=== PATIENT | female | born 1955 | race Caucasian/White ===

== ENCOUNTER 2018-11-20 12:30 | Inpatient (IN) | payer BC ==
[2018-12-18] MEDS ORDERED: Famotidine IV* 10 MG/ML 2 ML (20 mg) IV ONE (06:00)
[2018-12-18] MEDS ORDERED: Dexamethasone IV* 4 MG/ML 1 ML (4 MG) IV SLOW PU ONE (06:00)
[2018-12-18] MEDS ORDERED: Lactated Ringers 1000 ML Bag* 1,000 ML IV SCH ×2 (06:00→13:00)
[2018-12-18] MEDS ORDERED: fentaNYL* 50 MCG/ML 2 ML VIAL (100 MCG VIAL) IV PRN (07:23)
[2018-12-18] MEDS ORDERED: oxyCODONE/Acetamin 5/325 MG* TAB PO PRN ×2 (07:23→12:26)
[2018-12-18] MEDS ORDERED: Morphine 4 MG/ML VIAL (1 ml) 4 MG/ML VIAL IV PRN (07:23)
[2018-12-18] MEDS ORDERED: HYDROcodone/ACETAMIN 5-325 MG* 1 TAB PO PRN (07:23)
[2018-12-18] MEDS ORDERED: Naloxone* 0.4 MG/ML 1 ML VIAL IV PRN (07:23)
[2018-12-18] MEDS ORDERED: PROCHLORPERAZINE INJ 5 MG/ML 2 ML VIAL IV PRN (07:23)
--- OUTSIDE RECORDS SUMMARY | 2018-12-18 08:17 | XMS REPORT | Continuity of Care Document ---
:1955 External Reference #:[id number] Author Name Jorge Lauren Care Team Providers Name Role Phone Vadim Olguin MD Primary Care Physician Unavailable Payers Date Identification Numbers Payment Provider Subscriber Effective: 2016 Policy Number: [id number] [employer] Emeka Jain PayID: [id number] [address] [address] JEREMIAS Prasad [address] Expires: 2012 Policy Number: [id number] [employer] Ayah Jain PayID: [id number] [address] [address] JEREMIAS Prasad [address] Expires: 2013 Policy Number: [id number] [employer] Ayah Jain PayID: [id number] [address] [place] [address] Expires: 2013 Policy Number: [id number] [employer] Ayah Jain PayID: [id number] [address] [address] JEREMIAS Prasad [address] Expires: 2016 Policy Number: [id number] [employer] Emeka Jain PayID: [id number] [address] [address] [place] [address] Problems Active Problems Provider Date Skin sensation disturbance Neris Worthington M.D. Onset: 11/21/2014 Polyneuropathy Neris Worthington M.D. Onset: 11/21/2014 Carpal tunnel syndrome Neris Worthington M.D. Onset: 05/15/2015 Pain in lower limb Neris Worthington M.D. 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 ETOH Use Never used alcohol Tobacco Use Start: Unknown Light tobacco smoker (10 or fewer cigarettes/day) Smoking Status Reviewed: 11/29/18 Light tobacco smoker (10 or fewer cigarettes/day) Exercise Type/Frequency Does not exercise Allergies, Adverse Reactions, Alerts Active Allergies Reaction Severity Comments Date NSAIDs Severe internal bleeding Severe 12/19/2013 Aspartame 05/15/2015 Tape 05/15/2015 Adhesives 05/15/2015 Latex 11/13/2015 Bactrim 09/20/2018 Inactive Allergies NKDA 12/19/2013 Medications Active Medications SIG Qnty Indications Ordering Date Provider Doxycycline Monohydrate take one 42caps E11.621 Vadim Singh, 10/04/2018 100mg capsule twice M.D. Capsules a day. Lasix 1 by mouth Unknown 40mg Tablets every day prn Potassium Chloride Debbie ER 1 by mouth Unknown 20Meq every day Tablets ER Vitamin D 2 by mouth Unknown 2000Unit Tablets every day Nortriptyline HCL 1 capsule by [place], 10mg Capsules mouth daily MD Mac Citalopram Hydrobromide Take One Unknown 20mg Tablet By Tablets Mouth Every Day Oxycontin 1 tab by mouth [place], 20mg Tab ER 12H every 8 hrs MD Mca Abuse-Det Atenolol 1 by mouth 90tabs Unknown 25mg Tablets every day Oxycodone HCL 1 by mouth Unknown 10mg Tablets four times a day as needed Arimidex 1 by mouth Unknown 1mg Tablets every day Symbicort 1 puff twice a Unknown 80-4.5mcg/Act Aerosol day Ultram 2 tabs every 6 50tabs Unknown 50mg Tablets hours as needed pain Ventolin HFA 2 puffs by 1units Unknown 108(90Base) mcg/Act mouth four Aerosol times a day as needed Protonix 1 by mouth 90tabs Unknown 40mg Tablets DR every day [place] Thyroid 1 by mouth 45tabs Unknown 90mg Tablets every day Singulair 1 by mouth 30tabs Unknown 10mg Tablets every day Hydrochlorothiazide 1 by mouth 30tabs Unknown 50mg Tablets every day History Medications Dicloxacillin Sodium one by mouth 30caps E11.621 Vadim Singh, 2018 - twice a day M.D. 10/04/2018 250mg Capsules Bactrim DS 1 by mouth twice 14tabs L97.529 Vadim Singh, 08/09/2018 - 800-160mg a day M.D. 09/12/2018 Tablets Keflex 1 by mouth three 42caps L97.529 Vadim Singh, 07/06/2018 - 500mg Capsules times a day M.D. 07/25/2018 Trileptal 1- 3 tabs by 180tabs G60.3 Neris Morales 12/02/2015 - 150mg Tablets mouth 2x every Dixon Worthington.DNinfa 12/27/2016 day as directed Savella 1 by mouth twice Neris Morales 11/21/2014 - 50mg Tablets a day Elin M.DNinfa 05/10/2016 Trileptal 1- 3 tabs by 180tabs 782.0 Neris Morales 11/21/2014 - 150mg Tablets mouth 2x every Stacksharda M.DNinfa 05/14/2015 day as directed Magnolia 1 by mouth twice 60tabs 782.0 Tammi Pennington, 03/15/2014 - 5-325mg Tablets a day REGRADER 05/14/2015 Lyrica 2-4 caps by 120caps 356.9 Neris Morales 12/19/2013 - 50mg Capsules mouth every Stacksharda, M.D. 11/20/2014 night as directed Pamelor 1-3 caps by 90caps Neris Morales 10/15/2013 - 10mg Capsules mouth every Stacksharda M.DNinfa 12/07/2013 night as directed Lyrica 1 cap po qid 10caps Unknown - 50mg Capsules 12/07/2013 Atenolol 1 by mouth every 30tabs Unknown - 25mg Tablets day 09/18/2018 Maxair Autohaler 2 puffs by mouth 1units Unknown - every 4-6 hrs. 11/20/2014 200mcg/Inh Aerosol as needed Percocet 2 by mouth qid Unknown - 5-325mg 10/27/2015 Tablets Alendronate Sodium Take 1 Tablet By Unknown - 70mg Mouth Once A 07/25/2018 Tablets Week Medications Administered in Office Medication SIG Qnty Indications Ordering Provider Date Injection Hyaluronan Or Derivative, Sheree Rolon MD 06/13/2018 Euflexxa Per Dose Injection Injection Hyaluronan Or Derivative, Sheere Rolon MD 06/13/2018 Euflexxa Per Dose Injection Injection Hyaluronan Or Derivative, Sheree Rolon MD 06/01/2018 Euflexxa Per Dose Injection Injection Hyaluronan Or Derivative, Sheree Rolon MD 06/01/2018 Euflexxa Per Dose Injection Triamcinolone (Kenalog) Sheree Rolon MD 06/01/2018 Injection Injection Hyaluronan Or Derivative, Sheree Rolon MD 05/25/2018 Euflexxa Per Dose Injection Injection Hyaluronan Or Derivative, Sheree Rolon MD 05/25/2018 Euflexxa Per Dose Injection Triamcinolone (Kenalog) Sheree Rolon MD 04/18/2018 Injection Vital Signs Date Vital Result Comment 11/29/2018 2:52pm Height 66 inches 5'6" Weight 170.00 lb Heart Rate 66 /min BP Systolic Sitting 142 mmHg BP Diastolic Sitting 74 mmHg Respiratory Rate 16 /min Pain Level 7 O2 % BldC Oximetry 97 % BMI (Body Mass Index) 27.4 kg/m2 11/08/2018 4:20pm Height 66 inches 5'6" Weight 172.00 lb Heart Rate 66 /min BP Systolic Sitting 122 mmHg BP Diastolic Sitting 60 mmHg Respiratory Rate 18 /min Pain Level 8 BMI (Body Mass Index) 27.8 kg/m2 10/18/2018 2:19pm Height 66 inches 5'6" Weight 172.00 lb Heart Rate 66 /min BP Systolic Sitting 118 mmHg BP Diastolic Sitting 64 mmHg Respiratory Rate 18 /min Pain Level 7 BMI (Body Mass Index) 27.8 kg/m2 10/04/2018 2:04pm Height 66 inches 5'6" Weight 170.00 lb Heart Rate 66 /min BP Systolic Sitting 126 mmHg BP Diastolic Sitting 80 mmHg Respiratory Rate 12 /min Pain Level 7 BMI (Body Mass Index) 27.4 kg/m2 09/20/2018 2:26pm Height 66 inches 5'6" Weight 170.00 lb BP Systolic Sitting 128 mmHg BP Diastolic Sitting 76 mmHg Respiratory Rate 16 /min Pain Level 8 BMI (Body Mass Index) 27.4 kg/m2 08/30/2018 3:23pm Height 66 inches 5'6" Weight 185.00 lb BP Systolic Sitting 126 mmHg BP Diastolic Sitting 70 mmHg Respiratory Rate 16 /min Pain Level 7 BMI (Body Mass Index) 29.9 kg/m2 08/16/2018 2:49pm Height 66 inches Weight 185.00 lb BP Systolic Sitting 128 mmHg BP Diastolic Sitting 64 mmHg Respiratory Rate 17 /min Pain Level 7 BMI (Body Mass Index) 29.9 kg/m2 08/09/2018 3:09pm Heart Rate 92 /min BP Systolic Sitting 138 mmHg BP Diastolic Sitting 86 mmHg Respiratory Rate 16 /min Pain Level 8 O2 % BldC Oximetry 97 % 07/26/2018 2:52pm Heart Rate 69 /min BP Systolic Sitting 114 mmHg BP Diastolic Sitting 58 mmHg Respiratory Rate 16 /min Pain Level 6 O2 % BldC Oximetry 97 % 07/06/2018 11:41am Height 66 inches 5'6" Weight 185.00 lb Heart Rate 88 /min BP Systolic 154 mmHg BP Diastolic 80 mmHg Body Temperature 98.5 F Pain Level 8 BMI (Body Mass Index) 29.9 kg/m2 06/29/2018 3:37pm Height 66 inches 5'6" Weight 160.00 lb BP Systolic 144 mmHg BP Diastolic 86 mmHg Pain Level 8 BMI (Body Mass Index) 25.8 kg/m2 06/13/2018 2:10pm Height 66 inches 5'6" Weight 160.00 lb BP Systolic 138 mmHg BP Diastolic 80 mmHg Respiratory Rate 20 /min Pain Level 3 BMI (Body Mass Index) 25.8 kg/m2 06/01/2018 1:35pm Height 66 inches 5'6" Weight 160.00 lb BP Systolic 124 mmHg BP Diastolic 74 mmHg BMI (Body Mass Index) 25.8 kg/m2 05/25/2018 1:08pm Height 66 inches 5'6" Weight 160.00 lb BP Systolic 140 mmHg BP Diastolic 62 mmHg Respiratory Rate 20 /min Pain Level 7 BMI (Body Mass Index) 25.8 kg/m2 04/18/2018 11:19am Height 66 inches 5'6" Heart Rate 67 /min BP Systolic 120 mmHg BP Diastolic 70 mmHg Respiratory Rate 18 /min Body Temperature 98.0 F Pain Level 8 04/06/2018 8:47am Height 66 inches 5'6" BP Systolic 136 mmHg BP Diastolic 86 mmHg Respiratory Rate 18 /min Body Temperature 98.1 F Pain Level 7 11/03/2017 10:30am Height 66 inches 5'6" Heart Rate 75 /min BP Systolic 110 mmHg BP Diastolic 60 mmHg Respiratory Rate 16 /min Body Temperature 97.8 F Pain Level 5 01/20/2017 2:56pm Height 66 inches 5'6" Weight 160.00 lb Heart Rate 71 /min BP Systolic 131 mmHg BP Diastolic 72 mmHg Body Temperature 97.5 F Pain Level 5 BMI (Body Mass Index) 25.8 kg/m2 01/06/2017 2:56pm Heart Rate 68 /min BP Systolic Sitting 115 mmHg BP Diastolic Sitting 80 mmHg Body Temperature 98.1 F Pain Level 6 12/28/2016 3:16pm Height 66 inches 5'6" Weight 167.00 lb Heart Rate 62 /min BP Systolic Sitting 140 mmHg BP Diastolic Sitting 85 mmHg Body Temperature 97.7 F Pain Level 5 BMI (Body Mass Index) 27.0 kg/m2 09/29/2016 3:33pm Height 64 inches 5'4" Weight 174.00 lb Heart Rate 96 /min BP Systolic Sitting 158 mmHg BP Diastolic Sitting 98 mmHg Respiratory Rate 18 /min Body Temperature 98.5 F Pain Level 4 BMI (Body Mass Index) 29.9 kg/m2 07/02/2016 2:20pm Height 66 inches 5'6" Weight 160.00 lb Heart Rate 77 /min BP Systolic 136 mmHg BP Diastolic 78 mmHg Pain Level 8 BMI (Body Mass Index) 25.8 kg/m2 05/11/2016 8:54am Height 66 inches 5'6" Weight 170.00 lb Heart Rate 80 /min BP Systolic Sitting 124 mmHg BP Diastolic Sitting 62 mmHg Respiratory Rate 18 /min O2 % BldC Oximetry 97 % BMI (Body Mass Index) 27.4 kg/m2 03/18/2016 2:37pm Height 66 inches 5'6" Weight 160.00 lb Respiratory Rate 16 /min Pain Level 8 BMI (Body Mass Index) 25.8 kg/m2 03/09/2016 11:49am Height 66 inches 5'6" Weight 160.00 lb Pain Level 7 BMI (Body Mass Index) 25.8 kg/m2 12/02/2015 9:32am Height 66 inches 5'6" Weight 160.00 lb Heart Rate 76 /min BP Systolic Sitting 122 mmHg BP Diastolic Sitting 76 mmHg Respiratory Rate 14 /min BMI (Body Mass Index) 25.8 kg/m2 11/18/2015 2:33pm Height 66 inches 5'6" Weight 163.00 lb BMI (Body Mass Index) 26.3 kg/m2 11/13/2015 2:32pm Height 66 inches 5'6" Weight 163.00 lb Heart Rate 82 /min BP Systolic 134 mmHg BP Diastolic 84 mmHg BMI (Body Mass Index) 26.3 kg/m2 10/28/2015 2:01pm Height 66 inches 5'6" Weight 163.00 lb Pain Level 6 BMI (Body Mass Index) 26.3 kg/m2 10/21/2015 11:16am Height 66 inches 5'6" Weight 163.00 lb Heart Rate 60 /min Respiratory Rate 16 /min Pain Level 8 BMI (Body Mass Index) 26.3 kg/m2 06/20/2015 3:19pm Height 66 inches 5'6" Weight 163.00 lb Heart Rate 79 /min BP Systolic 132 mmHg BP Diastolic 69 mmHg BMI (Body Mass Index) 26.3 kg/m2 05/15/2015 10:33am Height 66 inches 5'6" Weight 155.00 lb Heart Rate 60 /min BP Systolic Sitting 136 mmHg BP Diastolic Sitting 84 mmHg Respiratory Rate 16 /min BMI (Body Mass Index) 25.0 kg/m2 11/21/2014 9:40am Height 66 inches 5'6" Weight 150.00 lb Heart Rate 76 /min BP Systolic Sitting 138 mmHg BP Diastolic Sitting 80 mmHg Respiratory Rate 16 /min BMI (Body Mass Index) 24.2 kg/m2 12/19/2013 2:24pm Height 66 inches 5'6" Weight 170.00 lb Heart Rate 84 /min BP Systolic Sitting 140 mmHg BP Diastolic Sitting 72 mmHg Respiratory Rate 16 /min BMI (Body Mass Index) 27.4 kg/m2 Results Test Date Facility Test Result H/L Range Note Basic Metabolic 01/03/2017 [facility] Sodium 133 mmol/L N 133- [address] [place] [address] [phone] Potassium 3.9 mmol/L N 3.5-5.0 Chloride 94 mmol/L Low 101-111 Co2 Carbon Dioxide 32 mmol/L N 22-32 Anion Gap 7 mmol/L N 2-11 Glucose 108 mg/dL High 70-100 Blood Urea Nitrogen 5 mg/dL Low 6-24 Creatinine 0.68 mg/dL N 0.51-0.95 BUN/Creatinine Ratio 7.4 Low 8-20 Calcium 9.4 mg/dL N 8.6-10.3 Egfr Non- 88.0 N >60 Egfr 113.1 N >60 1 Laboratory test finding 12/05/2015 [facility] Anti Ssa/Ro <0.2 U N [address] [place] [address] [phone] Anti SSB LA <0.2 U N 3 Cryoglobulin Negative %ppt N Negative 4 Rheumatoid Factor <15 IU/mL N <15 5 Basic Metabolic Panel 12/05/2015 [facility] Sodium 134 mmol/L N 133-[address] [place] [address] [phone] Potassium 3.6 mmol/L N 3.5-5.0 Chloride 97 mmol/L Low 101-111 Co2 Carbon Dioxide 29 mmol/L N 22-32 Anion Gap 8 mmol/L N 2-11 Glucose 79 mg/dL N 70-100 Blood Urea Nitrogen 3 mg/dL Low 6-24 Creatinine 0.64 mg/dL N 0.51-0.95 BUN/Creatinine Ratio 4.7 Low 8-20 Calcium 9.3 mg/dL N 8.6-10.3 Egfr Non- 94.7 N >60 Egfr 121.7 N >60 6 Laboratory test 11/25/2015 [facility] Cytology SEE RESULT [address] [place] [address] [phone] Laboratory test 01/20/2015 [facility] Vitamin D 34.5 ng/mL N 30-[address] Total 25(Oh) [place] [address] [phone] CBC No Diff 01/20/2015 [facility] White Blood 7.8 10^3/uL N 4.8-[address] Count .8 [place] [address] [phone] Red Blood Count 4.34 10^6/uL N 4.0-5.4 Hemoglobin 13.0 g/dL N 12.0-16.0 Hematocrit 38 % N 35-47 Mean Corpuscular Volume 87 fL N 80-97 Mean Corpuscular Hemoglobin 30 pg N 27-31 Mean Corpuscular HGB Conc 34 g/dL N 31-36 Red Cell Distribution Width 13 % N 10.5-15 Platelet Count 411 10^3/uL N 150-450 Mean Platelet Volume 8 um3 N 7.4-10.4 Comp Metabolic Panel 01/20/2015 [facility] Sodium 133 mmol/L N 133-[address] [place] [address] [phone] Potassium 4.0 mmol/L N 3.5-5.0 Chloride 96 mmol/L Low 101-111 Co2 Carbon Dioxide 31 mmol/L N 22-32 Anion Gap 6 mmol/L N 2-11 Glucose 106 mg/dL High 70-100 Blood Urea Nitrogen 4 mg/dL Low 6-24 Creatinine 0.65 mg/dL N 0.51-0.95 BUN/Creatinine Ratio 6.2 Low 8-20 Calcium 9.6 mg/dL N 8.6-10.3 Total Protein 6.5 g/dL N 6.4-8.9 Albumin 4.1 g/dL N 3.2-5.2 Globulin 2.4 g/dL N 2-4 Albumin/Globulin Ratio 1.7 N 1-3 Total Bilirubin 0.30 mg/dL N 0.2-1.0 Alkaline Phosphatase 78 U/L N 34-104 Alt 10 U/L N 7-52 Ast 17 U/L N 13-39 Egfr Non- 93.3 N >60 Egfr 120.0 N >60 8 Laboratory test 06/06/2014 [facility] Lupe (Anti-Nuclear Negative N Negative finding [address] AB) [place] [address] [phone] Erythrocyte Sed Rate 36 mm/Hr High 0-30 C Reactive Protein 21.67 mg/L High < 5.00 9 Rheumatoid Factor <15 IU/mL N <15 10 CBC No Diff 06/06/2014 [facility] White Blood 5.9 10^3/uL N 4.8-10.[address] [place] [address] [phone] Red Blood Count 4.23 10^6/uL N 4.0-5.4 Hemoglobin 11.8 g/dL Low 12.0-16.0 Hematocrit 35 % N 35-47 Mean Corpuscular Volume 83 fL N 80-97 Mean Corpuscular Hemoglobin 28 pg N 27-31 Mean Corpuscular HGB Conc 34 g/dL N 31-36 Red Cell Distribution Width 14 % N 10.5-15 Platelet Count 431 10^3/uL N 150-450 Mean Platelet Volume 8 um3 N 7.4-10.4 Comp Metabolic Panel 06/06/2014 [facility] Sodium 133 mmol/L N 133-[address] [place] [address] [phone] Potassium 2.9 mmol/L Low 3.5-5.0 Chloride 95 mmol/L Low 101-111 Co2 Carbon Dioxide 32 mmol/L N 22-32 Anion Gap 6 mmol/L N 2-11 Glucose 88 mg/dL N 70-100 Blood Urea Nitrogen 5 mg/dL Low 6-24 Creatinine 0.61 mg/dL N 0.51-0.95 BUN/Creatinine Ratio 8.2 N 8-20 Calcium 9.6 mg/dL N 8.6-10.3 Total Protein 7.1 g/dL N 6.4-8.9 Albumin 4.0 g/dL N 3.2-5.2 Globulin 3.1 g/dL N 2-4 Albumin/Globulin Ratio 1.3 N 1-3 Total Bilirubin 0.20 mg/dL N 0.2-1.0 Alkaline Phosphatase 70 U/L N 34-104 Alt 9 U/L N 7-52 Ast 14 U/L N 13-39 Egfr Non- 100.4 N >60 Egfr 129.1 N >60 11 Lipid Profile 06/06/2014 [facility] Triglycerides 134 mg/dL N 12 (Trig/Chol/HDL) [address] [place] [address] [phone] Cholesterol 117 mg/dL N 13 HDL Cholesterol 42.6 mg/dL N 14 LDL Cholesterol 48 mg/dL N 15 Laboratory test 06/06/2014 [facility] TSH (Thyroid 0.10 Low 0.34-5.[address] Stimulating IU/[place] [address] Horm) [phone] Laboratory test 12/25/2013 [facility] Anti Ssa/Ro <0.2 U N [address] [place] [address] [phone] SS-B/La Antibody <0.2 U N 17 Hepatitis C Antibody Nonreactive N Nonreactive Cryoglobulin Negative %ppt N Negative 18 Protein 10/18/2013 [facility] Total 6.7 g/dL N 6.3 - Electrophoresis [address] [facility] Protein(Pep) 7.9 [place] [address] [phone] Albumin 3.3 g/dL Abnormal 3.4-4.7 Alpha-1 Globulin 0.2 g/dL N 0.1-0.3 Alpha-2 Globulin 0.9 g/dL N 0.6-1.0 Beta Globulin 1.0 g/dL N 0.7-1.2 Gamma Globulin 1.3 g/dL N 0.6-1.6 Albumin/Globulin Ratio 0.96 N Impression See Comment N 19 Laboratory test 10/18/2013 [facility] Vitamin B12 1082 pg/mL High 180-914 [address] [place] [address] [phone] Free T4 0.88 ng/mL N 0.61-1.12 TSH (Thyroid Stimulating Horm) 0.11 IU/mL Low 0.34-5.60 Lupe (Anti-Nuclear AB) Screen Negative N Negative 1 Because ethnic data is not always readily available, this report includes an eGFR for both -Americans and non- Americans. The National Kidney Disease Education Program (NKDEP) does not endorse the use of the MDRD equation for patients that are not between the ages of 18 and 70, are , have extremes of body size, muscle mass, or nutritional status, or are non- or non-. According to the National Kidney Foundation, irrespective of diagnosis, the stage of the disease is based on the level of kidney function: Stage Description GFR(mL/min/1.73 m(2)) 1 Kidney damage with normal or decreased GFR 90 2 Kidney damage with mild decrease in GFR 60-89 3 Moderate decrease in GFR 30-59 4 Severe decrease in GFR 15-29 5 Kidney failure <15 (or dialysis) 2 REFERENCE VALUE <1.0 (Negative) Test Performed by: [place] [address] Zanjero: Kunal Aguilar II, M.D., Ph.D. 3 REFERENCE VALUE <1.0 (Negative) Test Performed by: [place] [address] Zanjero: Kunal Aguilar II, M.D., Ph.D. 4 This test is negative at 24 hours. All samples are held and reviewed again at 7 days. If delayed precipitation occurs after 7 days, Immunofixation will be performed and an additional report will follow. Test Performed by: [place] [address] Zanjero: Kunal Aguilar II, M.D., Ph.D. 5 Test Performed by: [place] [address] Zanjero: Kunal Aguilar II, M.D., Ph.D. 6 Because ethnic data is not always readily available, this report includes an eGFR for both -Americans and non- Americans. The National Kidney Disease Education Program (NKDEP) does not endorse the use of the MDRD equation for patients that are not between the ages of 18 and 70, are , have extremes of body size, muscle mass, or nutritional status, or are non- or non-. According to the National Kidney Foundation, irrespective of diagnosis, the stage of the disease is based on the level of kidney function: Stage Description GFR(mL/min/1.73 m(2)) 1 Kidney damage with normal or decreased GFR 90 2 Kidney damage with mild decrease in GFR 60-89 3 Moderate decrease in GFR 30-59 4 Severe decrease in GFR 15-29 5 Kidney failure <15 (or dialysis) 7 SEE RESULT BELOW Name: AYAH JAIN Iris : [address]: Nuha Rothman MD Acct: [id number] Unit: [id number] AGE: 60 Location: Re11/25/15 SEX: F Status: REG REF SPEC: [id number] FRANCISCO: 11/25/15-[address] [facility] [address]: Kong Ward MD REQ: [id number] RECD: 11/25/15-1627 STATUS: TARA DAUGHERTY DR: Mac Olguin MD _ ORDERED: FN ASP DEEP, KERATIN STAIN, LEVEL IV, FNA IMMEDIATE S, ERAS-ADD, CD68-AD CK7-ADD, XO57-UWI, CALRET-ADD, TTF1-ADD, WT-1-ADD, PRAS-ADD FINAL DIAGNOSIS Right rib, CT guided fine needle aspiration: -- Blood, mesothelial cells, and macrophages. No evidence of malignancy. COMMENT: A cell block was prepared in the evaluation of this specimen. Smears and cell block show similar cytomorphologic features. Immunohistochemical stains, with appropriately reacting controls, were performed on sections cut from the cell block and are negative for ER, UT, CK20, and WT-1 and positive for pankeratin, calretinin, CD68, TTF-1, and CK7, supporting the diagnosis. Dr. Parrish reviewed this case in intradepartmental consultation and agrees with the diagnosis. FNAD. RIB - CT GUIDED FINE NEEDLE ASPIRATION RIGHT RIB BIOPSY CLINICAL HISTORY Right rib bone biopsy. Right breast invasive ductal adenocarcinoma 03/22. CONTINUED ON NEXT PAGE * ML=Testing performed at Main Lab DEPARTMENT OF PATHOLOGY, [address] [place] [address] Zia Parrish M.D. Director [facility] # [id number] RUN DATE: 11/28/15 [facility] LAB LIVE PAGE 2 Patient: AYAH JAIN [id number] (Continued) IMMEDIATE INTERPRETATION (Continued) IMMEDIATE INTERPRETATION Pass 1-[address] Guided, fine needle aspiration x 5 passes, 7 alcohol fixed slides and needle rinse in formalin for cell block. Signed (signature on file) Ana Maria Rocha MD [id number] END OF REPORT * ML=Testing performed at Main Lab DEPARTMENT OF PATHOLOGY, [address] [place] [address] Zia Parrish M.D. Director [facility] # [id number] 8 Because ethnic data is not always readily available, this report includes an eGFR for both -Americans and non- Americans. The National Kidney Disease Education Program (NKDEP) does not endorse the use of the MDRD equation for patients that are not between the ages of 18 and 70, are , have extremes of body size, muscle mass, or nutritional status, or are non- or non-. According to the National Kidney Foundation, irrespective of diagnosis, the stage of the disease is based on the level of kidney function: Stage Description GFR(mL/min/1.73 m(2)) 1 Kidney damage with normal or decreased GFR 90 2 Kidney damage with mild decrease in GFR 60-89 3 Moderate decrease in GFR 30-59 4 Severe decrease in GFR 15-29 5 Kidney failure <15 (or dialysis) 9 Acute inflammation: >10.00 10 Test Performed by: [place] [address] Zanjero: Geremias Adames M.D. 11 Because ethnic data is not always readily available, this report includes an eGFR for both -Americans and non- Americans. The National Kidney Disease Education Program (NKDEP) does not endorse the use of the MDRD equation for patients that are not between the ages of 18 and 70, are , have extremes of body size, muscle mass, or nutritional status, or are non- or non-. According to the National Kidney Foundation, irrespective of diagnosis, the stage of the disease is based on the level of kidney function: Stage Description GFR(mL/min/1.73 m(2)) 1 Kidney damage with normal or decreased GFR 90 2 Kidney damage with mild decrease in GFR 60-89 3 Moderate decrease in GFR 30-59 4 Severe decrease in GFR 15-29 5 Kidney failure <15 (or dialysis) 12 Desirable <150 Borderline high 150-199 High 200-499 Very High >500 13 Desirable <200 Borderline high 200-239 High >239 14 Low <40 Desirable: 40-60 High: >60 15 Desirable <100 Near Optimal 100-129 Borderline high 130-159 High 160-189 Very High >189 16 -- REFERENCE VALUE -- <1.0 (Negative) Test Performed by: [place] [address] Zanjero: Henry Everett III, M.D. 17 -- REFERENCE VALUE -- <1.0 (Negative) Test Performed by: [place] [address] Zanjero: Henry Everett III, M.D. 18 This test is negative at 24 hours. All samples are held and reviewed again at 7 days. If delayed precipitation occurs after 7 days, Immunofixation will be performed and an additional report will follow. Test Performed by: [place] [address] Zanjero: Henry Everett III, M.D. 19 RESULT: No apparent monoclonal protein on serum electrophoresis. Test Performed by: [address] [address] Zanjero: Henry Everett III, M.D. 20 Normal Range 180 to 914 Indeterminate Range 145 to 180 Deficient Range <145 Procedures Date Code Description Status 11/22/2018 [id number] Diabetic Foot Exam Completed 08/16/2018 84343 Rad Exam; Foot Comp Completed 06/13/2018 Inj/Aspir Major JT Or Bursa W/ US Completed 06/01/2018 Inj/Aspir Major JT Or Bursa W/ US Completed 06/01/2018 Inject/Drain Joint/Bursa Major W/O US Completed 05/25/2018 Inj/Aspir Major JT Or Bursa W/ US Completed 04/18/2018 Inject/Drain Joint/Bursa Major W/O US Completed 12/19/2013 89863 Nerve Conduction 05-06 Studies Completed 08/05/2010 [id number] EKG, Interpretation Only Completed 08/05/2010 [id number] Insert Non-Tunneled Venous Catether Completed Encounters Type Date Location Provider Dx Diagnosis Office Visit 11/29/2018 Orthopedic Vadim Singh, E11.621 Type 2 diabetes 2:45p Services Of Sandee CUEVAS M.DNinfa mellitus with [place] foot ulcer Office Visit 10/18/2018 Orthopedic Vadim Singh, E11.621 Type 2 diabetes 3:00p Services Of Sandee Metcalf.[place] mellitus with [place] foot ulcer L97.429 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 mellitus with AT [place] foot ulcer Office Visit 09/20/2018 2:45p Orthopedic Vadim E11.621 Type 2 diabetes Services Of Sandee Singh M.D. mellitus with AT [place] foot ulcer Office Visit 08/30/2018 3:15p Orthopedic Vadim E11.621 Type 2 diabetes Services Of Sandee Singh M.D. 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 mellitus with AT [place] foot ulcer M86.9 Osteomyelitis, unspecified L97.529 Non-pressure chronic ulcer oth prt left foot w unsp severity Office Visit 08/09/2018 3:15p Orthopedic Vadim L97.529 Non-pressure Services Of Sandee Singh M.D. chronic ulcer oth AT [place] prt left foot w unsp severity Office Visit 07/26/2018 2:45p Orthopedic Vadim L97.529 Non-pressure Services Of Sandee Singh M.D. chronic ulcer oth AT [place] prt left foot w unsp severity Office Visit 07/06/2018 11:00a Orthopedic Vadim L97.529 Non-pressure Services Of Anthony Singh chronic ulcer oth [facility] prt left foot w unsp severity Office Visit 06/29/2018 3:15p Orthopedic Sheree Rolon M75.121 Complete Services Of MD rotatr-cuff [facility] tear/ruptr of r shoulder, not trauma M75.122 Complete rotatr-cuff tear/ruptr of left shoulder, not trauma Office Visit 06/13/2018 2:00p Orthopedic Sheree Rolon, M75.121 Complete Services Of rotatr-cuff [facility] tear/ruptr of r shoulder, not trauma M17.0 Bilateral primary osteoarthritis of knee Office Visit 04/18/2018 10:45a Orthopedic Sheree Rolon, M17.0 Bilateral primary Services Of osteoarthritis of [facility] knee M75.122 Complete rotatr-cuff tear/ruptr of left shoulder, not trauma Office Visit 04/06/2018 Orthopedic Sheree Rolon, M17.11 Unilateral primary 8:30a Services Of osteoarthritis, right [facility] knee M17.12 Unilateral primary osteoarthritis, left knee M75.122 Complete rotatr-cuff tear/ruptr of left shoulder, not trauma M17.0 Bilateral primary osteoarthritis of knee M25.512 Pain in left shoulder Office Visit 11/03/2017 Reuben Rolon, M17.11 Unilateral primary 10:30a Services Of osteoarthritis, [facility] right knee Office Visit 01/20/2017 Reuben Rolon, M75.122 Complete rotatr- cuff 2:45p Services Of tear/ruptr of left [facility] shoulder, not trauma Office Visit 01/06/2017 Reuben Rolon, M75.121 Complete rotatr- cuff 2:45p Services Of tear/ruptr of r [facility] shoulder, not trauma S46.012D Strain of musc/tend the rotator cuff of left shoulder, subs Office Visit 12/28/2016 2:30p Orthopedic Sheree Rolon M25.511 Pain in right Services Of shoulder [facility] R07.9 Chest pain, unspecified R07.89 Other chest pain Office Visit 09/29/2016 3:15p Orthopedic Jasmina M67.432 Ganglion, left Services Of Anthony Calix wrist [facility]. Office Visit 07/02/2016 2:15p Orthopedic Vadim Singh, M19.072 Primary Services Of Anthony osteoarthritis, [facility].M.[facility]. 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 left ankle and foot Office Visit 12/02/2015 9:30a Venus Morales R20.2 Paresthesia of Services Of garth Glasgow M.D. G60.3 Idiopathic progressive neuropathy G56.01 Carpal tunnel syndrome, right upper limb G56.02 Carpal tunnel syndrome, left upper limb Office Visit 11/18/2015 2:30p Orthopedic Sheree Rolon M75.121 Complete Services Of MD renteria C.M.ANinfa tear/ruptr of r shoulder, not trauma Office Visit 11/13/2015 2:20p Orthopedic Susan M25.531 Pain in right Services Of Tegan, wrist [facility]. RPA-C Office Visit 10/28/2015 2:00p Reuben Blanco9.072 Primary Services Of Anthony Singh osteoarthritis, [facility].M.A. 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 ankle and foot M19.071 Primary osteoarthritis, right ankle and foot Office Visit 05/15/2015 10:30a Venus Morales R20.2 Paresthesia of Services Of Manager Reimbursement Stackman, M.D. skin M79.604 Pain in right leg G60.3 Idiopathic progressive neuropathy G56.02 Carpal tunnel syndrome, left upper limb Office Visit 11/21/2014 9:45a [place] [facility] Neris Moraels 782.0 Skin Sensation Services Of Sandee Worthington M.D. Disturbance 356.4 Polyneuropathy Idiopathic Progress Office Visit 03/15/2014 10:45a [place] [facility] Neris Morales 782.0 Skin Sensation Services Of Sandee Worthington M.D. Disturbance 729.5 Pain In Limb Office Visit 10/15/2013 11:00a [place] Mor[place] 729.5 Pain In Neurologic Serv Of Sandee Worthington M.D. Limb 782.0 Skin Sensation Disturbance Plan of Treatment Future Appointment(s):12/06/2018 3:15 pm - Vadim Singh M.D. at [facility] AT [place]/29/2019 11:00 am - OSCAR Potter at [facility]12/04/2018 11:00 am - Vadim Singh M.D. at [facility]11/29/2018 - Vadim Singh M.D.E11.621 Type 2 diabetes mellitus with foot ulcerFollow up:1 week
--- OUTSIDE RECORDS SUMMARY | 2018-12-18 08:17 | XMS REPORT | Continuity of Care Document ---
:1955 External Reference #:[id number] Author Name OSCAR Acosta Address [address] [place] [address] Care Team Providers Name Role Phone Vadim Olguin MD Primary Care Physician Unavailable Payers Date Identification Numbers Payment Provider Subscriber Effective: 2016 Policy Number: [id number] [employer] Emeka Jain PayID: [id number] [address] [address] JEREMIAS Prasad [address] Expires: 2012 Policy Number: [id number] [employer] [place] Ayah Jain PayID: [id number] [address] [address] JEREMIAS Prasad [address] Expires: 2013 Policy Number: [id number] [employer] Ayah Jain PayID: [id number] [address] [place] [address] Expires: 2013 Policy Number: [id number] [employer] Ayah Jain PayID: [id number] [address] [address] JEREMIAS Prasad [address] Expires: 2016 Policy Number: [id number] [employer] Emeka Jain PayID: [id number] [address] [address] JEREMIAS Prasad [address] Problems Active Problems Provider Date Skin sensation [...] (10 or fewer cigarettes/day) Smoking Status Reviewed: 12/06/18 Light tobacco smoker (10 or fewer cigarettes/day) Exercise Type/Frequency Does not exercise Allergies, Adverse Reactions, Alerts Active Allergies Reaction Severity Comments Date NSAIDs Severe internal bleeding Severe 12/19/2013 Aspartame 05/15/2015 Tape 05/15/2015 Adhesives 05/15/2015 Latex 11/13/2015 Bactrim 09/20/2018 Environmental/Seasonal 12/06/2018 Inactive Allergies NKDA 12/19/2013 Medications Active Medications SIG Qnty Indications Ordering Date Provider Doxycycline Monohydrate take one 42caps E11.621 [facility], 10/04/2018 100mg capsule twice MD Capsules a day. Lasix 1 by mouth Unknown 40mg Tablets every day prn Potassium Chloride Debbie ER 1 by mouth Unknown 20Meq every day Tablets ER Vitamin D 2 by mouth Unknown 2000Unit Tablets every day Nortriptyline HCL 2 capsule by Zeeshanpjosh, 10mg Capsules mouth daily MD Mac Citalopram Hydrobromide Take One Unknown 20mg Tablet By Tablets Mouth Every Day Oxycontin 1 tab by mouth [place], 20mg Tab ER 12H every 8 hrs MD Mac Abuse-Det Atenolol 1 by mouth 90tabs Unknown 25mg Tablets every day Oxycodone HCL 1 by mouth Unknown 10mg Tablets eight times a day as needed Arimidex 1 [...] 90tabs Unknown 40mg Tablets DR every day [place] Thyroid 1 by mouth 45tabs Unknown 90mg [...] 12/02/2015 - 150mg Tablets mouth 2x every Stacksharda M.DNinfa 12/27/2016 day as directed Savella 1 by mouth twice Neris Morales 11/21/2014 - 50mg Tablets a day Anthony Worthington 05/10/2016 Trileptal 1- 3 tabs by 180tabs 782.0 Neris Morales 11/21/2014 - 150mg Tablets mouth 2x every Stackman M.D. 05/14/2015 day as directed [place] 1 by mouth twice 60tabs 782.0 Tammi Pennington, 03/15/2014 - 5-325mg Tablets a day DIRECT SUPPORT PROFESSIONAL CAREGIVER 05/14/2015 Lyrica 2-4 caps by 120caps 356.9 Neris Morales 12/19/2013 - 50mg Capsules mouth every Stackman M.D. 11/20/2014 night as directed [place] 1-3 caps by 90caps Neris Morales 10/15/2013 - 10mg Capsules mouth every Anthony Worthington 12/07/2013 night as directed Lyrica 1 cap [...] Injection Vital Signs Date Vital Result Comment 12/06/2018 3:25pm Height 66 inches 5'6" Weight 165.00 lb per pt Heart Rate 68 /min BP Systolic Sitting 142 mmHg BP Diastolic Sitting 86 mmHg Respiratory Rate 20 /min Body Temperature 99.1 F Pain Level 7 O2 % BldC Oximetry 98 % BMI (Body Mass Index) 26.6 kg/m2 11/29/2018 2:52pm Height 66 inches 5'6" Weight [...] Result H/L Range Note Basic Metabolic 01/03/2017 [facility] Sodium 133 mmol/L Normal 133-[address] [place] [address] [phone] Potassium 3.9 mmol/L Normal 3.5-5.0 Chloride 94 mmol/L Low 101-111 Co2 Carbon Dioxide 32 mmol/L Normal 22-32 Anion Gap 7 mmol/L Normal 2-11 Glucose 108 mg/dL High 70-100 Blood Urea Nitrogen 5 mg/dL Low 6-24 Creatinine 0.68 mg/dL Normal 0.51-0.95 BUN/Creatinine Ratio 7.4 Low 8-20 Calcium 9.4 mg/dL Normal 8.6-10.3 Egfr Non- 88.0 Normal >60 Egfr 113.1 Normal >60 1 Laboratory test 12/05/2015 [facility] Anti Ssa/Ro <0.2 U Normal [address] [place] [address] [phone] Anti SSB LA <0.2 U Normal 3 Cryoglobulin Negative %ppt Normal Negative 4 Rheumatoid Factor <15 IU/mL Normal <15 5 Basic Metabolic 12/05/2015 [facility] Sodium 134 mmol/L Normal 133-[address] [place] [address] [phone] Potassium 3.6 mmol/L Normal 3.5-5.0 Chloride 97 mmol/L Low 101-111 Co2 Carbon Dioxide 29 mmol/L Normal 22-32 Anion Gap 8 mmol/L Normal 2-11 Glucose 79 mg/dL Normal 70-100 Blood Urea Nitrogen 3 mg/dL Low 6-24 Creatinine 0.64 mg/dL Normal 0.51-0.95 BUN/Creatinine Ratio 4.7 Low 8-20 Calcium 9.3 mg/dL Normal 8.6-10.3 Egfr Non- 94.7 Normal >60 Egfr 121.7 Normal >60 6 Laboratory test 11/25/2015 [facility] Cytology SEE RESULT [address] Non-Supervisor [employer] [place] [address] [phone] Laboratory test 01/20/2015 [facility] Vitamin D 34.5 ng/mL Normal 30-[address] Total 25(Oh) [place] [address] [phone] CBC No Diff 01/20/2015 [facility] White Blood 7.8 10^3/uL Normal 4.8-[address] Count 0.8 [place] [address] [phone] Red Blood Count 4.34 10^6/uL Normal 4.0-5.4 Hemoglobin 13.0 g/dL Normal 12.0-16.0 Hematocrit 38 % Normal 35-47 Mean Corpuscular Volume 87 fL Normal 80-97 Mean Corpuscular Hemoglobin 30 pg Normal 27-31 Mean Corpuscular HGB Conc 34 g/dL Normal 31-36 Red Cell Distribution Width 13 % Normal 10.5-15 Platelet Count 411 10^3/uL Normal 150-450 Mean Platelet Volume 8 um3 Normal 7.4-10.4 Comp Metabolic 01/20/2015 [facility] Sodium 133 mmol/L Normal 133-[address] [place] [address] [phone] Potassium 4.0 mmol/L Normal 3.5-5.0 Chloride 96 mmol/L Low 101-111 Co2 Carbon Dioxide 31 mmol/L Normal 22-32 Anion Gap 6 mmol/L Normal 2-11 Glucose 106 mg/dL High 70-100 Blood Urea Nitrogen 4 mg/dL Low 6-24 Creatinine 0.65 mg/dL Normal 0.51-0.95 BUN/Creatinine Ratio 6.2 Low 8-20 Calcium 9.6 mg/dL Normal 8.6-10.3 Total Protein 6.5 g/dL Normal 6.4-8.9 Albumin 4.1 g/dL Normal 3.2-5.2 Globulin 2.4 g/dL Normal 2-4 Albumin/Globulin Ratio 1.7 Normal 1-3 Total Bilirubin 0.30 mg/dL Normal 0.2-1.0 Alkaline Phosphatase 78 U/L Normal 34-104 Alt 10 U/L Normal 7-52 Ast 17 U/L Normal 13-39 Egfr Non- 93.3 Normal >60 Egfr 120.0 Normal >60 8 Laboratory 06/06/2014 [facility] Lupe Negative Normal Negative test finding [address] ([place] [address] AB) Screen [phone] Erythrocyte Sed Rate 36 mm/Hr High 0-30 C Reactive Protein 21.67 mg/L High < 5.00 9 Rheumatoid Factor <15 IU/mL Normal <15 10 CBC No Diff 06/06/2014 [facility] White Blood 5.9 10^3/uL Normal 4.8-10.8 [address] [place] [address] [phone] Red Blood Count 4.23 10^6/uL Normal 4.0-5.4 Hemoglobin 11.8 g/dL Low 12.0-16.0 Hematocrit 35 % Normal 35-47 Mean Corpuscular Volume 83 fL Normal 80-97 Mean Corpuscular Hemoglobin 28 pg Normal 27-31 Mean Corpuscular HGB Conc 34 g/dL Normal 31-36 Red Cell Distribution Width 14 % Normal 10.5-15 Platelet Count 431 10^3/uL Normal 150-450 Mean Platelet Volume 8 um3 Normal 7.4-10.4 Comp Metabolic 06/06/2014 [facility] Sodium 133 mmol/L Normal 133-145 [place] [address] [phone] Potassium 2.9 mmol/L Low 3.5-5.0 Chloride 95 mmol/L Low 101-111 Co2 Carbon Dioxide 32 mmol/L Normal 22-32 Anion Gap 6 mmol/L Normal 2-11 Glucose 88 mg/dL Normal 70-100 Blood Urea Nitrogen 5 mg/dL Low 6-24 Creatinine 0.61 mg/dL Normal 0.51-0.95 BUN/Creatinine Ratio 8.2 Normal 8-20 Calcium 9.6 mg/dL Normal 8.6-10.3 Total Protein 7.1 g/dL Normal 6.4-8.9 Albumin 4.0 g/dL Normal 3.2-5.2 Globulin 3.1 g/dL Normal 2-4 Albumin/Globulin Ratio 1.3 Normal 1-3 Total Bilirubin 0.20 mg/dL Normal 0.2-1.0 Alkaline Phosphatase 70 U/L Normal 34-104 Alt 9 U/L Normal 7-52 Ast 14 U/L Normal 13-39 Egfr Non- 100.4 Normal >60 Egfr 129.1 Normal >60 11 Lipid Profile 06/06/2014 [facility] Triglycerides 134 mg/dL Normal 12 (Trig/Chol/HDL) [address] [place] [address] [phone] Cholesterol 117 mg/dL Normal 13 HDL Cholesterol 42.6 mg/dL Normal 14 LDL Cholesterol 48 mg/dL Normal 15 Laboratory 06/06/2014 [facility] TSH (Thyroid 0.10 Low 0.34- 5.60 test finding [address] [facility] Stimulating IU/[place] [address] Horm) [phone] Laboratory 12/25/2013 [facility] Anti Ssa/Ro <0.2 U Normal 16 test finding [address] [facility] [place] [address] [phone] SS-B/La Antibody <0.2 U Normal 17 Hepatitis C Antibody Nonreactive Normal Nonreactive Cryoglobulin Negative %ppt Normal Negative 18 Protein 10/18/2013 [facility] Total 6.7 Normal 6.3 - Electrophoresis 101 [facility] Protein(Pep) g/dL 7.9 [place] [address] [phone] Albumin 3.3 g/dL Abnormal 3.4-4.7 Alpha-1 Globulin 0.2 g/dL Normal 0.1-0.3 Alpha-2 Globulin 0.9 g/dL Normal 0.6-1.0 Beta Globulin 1.0 g/dL Normal 0.7-1.2 Gamma Globulin 1.3 g/dL Normal 0.6-1.6 Albumin/Globulin Ratio 0.96 Normal Impression See Comment Normal 19 Laboratory test 10/18/2013 [facility] Vitamin B12 1082 pg/mL High 180-914 20 [address] [place] [address] [phone] Free T4 0.88 ng/mL Normal 0.61-1.12 TSH (Thyroid Stimulating Horm) 0.11 IU/mL Low 0.34-5.60 Lupe (Anti-Nuclear AB) Screen Negative Normal Negative 1 Because ethnic data is not [...] REFERENCE VALUE <1.0 (Negative) Test Performed by: [place] [address] Police Detective: Kunal Aguilar II, M.D., Ph.D. 3 REFERENCE VALUE <1.0 (Negative) Test Performed by: [place] [address] Police Detective: Kunal Aguilar II, M.D., Ph.D. 4 This test is negative at 24 hours. All samples are held and reviewed again at 7 days. If delayed precipitation occurs after 7 days, Immunofixation will be performed and an additional report will follow. Test Performed by: [place] [address] Police Detective: Kunal Aguilar II, M.D., Ph.D. 5 Test Performed by: [place] [address] Police Detective: Kunal Aguilar II, M.D., Ph.D. 6 Because [...] [address]: Nuha Rothman MD Acct: [id number] Unit: [id number] AGE: 60 Location: Re11/25/15 SEX: F Status: REG REF SPEC: [id number] FRANCISCO: 11/25/15-[address] [facility] [address]: Kong Ward MD REQ: [id number] RECD: 11/25/15-1537 STATUS: TARA DAUGHERTY DR: Mac Olguin MD _ ORDERED: FN ASP DEEP, KERATIN STAIN, LEVEL IV, FNA IMMEDIATE S, ERAS-ADD, CD68-AD CK7-ADD, FO34-AVB, CALRET-ADD, TTF1-ADD, WT-1-ADD, PRAS-ADD FINAL DIAGNOSIS Right rib, CT guided fine needle aspiration: -- Blood, mesothelial cells, and macrophages. No evidence of malignancy. COMMENT: A cell block was prepared in the evaluation of this specimen. Smears and cell block show similar cytomorphologic features. Immunohistochemical stains, with appropriately reacting controls, were performed on sections cut from the cell block and are negative for ER, IA, CK20, and WT-1 and positive for pankeratin, [...] performed at Main Lab DEPARTMENT OF PATHOLOGY, [address] [place] [address] Zia Parrish M.D. Director [facility] # [id number] RUN DATE: 11/28/15 [facility] LAB LIVE PAGE 2 Patient: AYAH JAIN Iris [id number] (Continued) IMMEDIATE INTERPRETATION (Continued) IMMEDIATE INTERPRETATION Pass 1-[address] Guided, fine needle aspiration x 5 passes, 7 alcohol fixed slides and needle rinse in formalin for cell block. Signed (signature on file) Ana Maria Rocha MD 0838 END OF REPORT * ML=Testing performed at Main Lab DEPARTMENT OF PATHOLOGY, [address] [place] [address] Zai Parrish M.D. Director [facility] # [id number] 8 Because ethnic data is not always [...] Acute inflammation: >10.00 10 Test Performed by: [address] [address] Police Detective: Geremias Adames M.D. 11 Because ethnic data [...] VALUE -- <1.0 (Negative) Test Performed by: [place] [address] Police Detective: Henry Everett III, M.D. 17 -- REFERENCE VALUE -- <1.0 (Negative) Test Performed by: [place] [address] Police Detective: Henry Everett III, M.D. 18 This test is negative at 24 hours. All samples are held and reviewed again at 7 days. If delayed precipitation occurs after 7 days, Immunofixation will be performed and an additional report will follow. Test Performed by: [place] [address] Police Detective: Henry Everett III, M.D. 19 RESULT: No apparent monoclonal protein on serum electrophoresis. Test Performed by: [place] [address] Police Detective: Henry Everett III, M.D. 20 Normal Range 180 to 914 Indeterminate Range 145 to 180 Deficient Range <145 Procedures Date Code Description Status 11/22/2018 969321615 Diabetic Foot Exam Completed 08/16/2018 73233 Rad Exam; Foot Comp Completed 06/13/2018 Inj/Aspir Major JT Or Bursa W/ US Completed 06/01/2018 Inj/Aspir Major JT Or Bursa W/ US Completed 06/01/2018 Inject/Drain Joint/Bursa Major W/O US Completed 05/25/2018 Inj/Aspir Major JT Or Bursa W/ US Completed 04/18/2018 Inject/Drain Joint/Bursa Major W/O US Completed 12/19/2013 15106 Nerve Conduction 05-06 Studies Completed 08/05/2010 63221 EKG, Interpretation Only Completed 08/05/2010 49277 Insert Non-Tunneled Venous Catether Completed Encounters Type Date Location Provider Dx Diagnosis Office Visit 10/18/2018 Orthopedic Vadim Singh E11.62Deja Type 2 diabetes 3:00p [facility]ee CUEVAS M.D. 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 mellitus with AT [place] foot ulcer Office Visit 09/20/2018 2:45p Orthopedic Vadim E11.621 Type 2 diabetes [facility] Sandee Singh M.D. mellitus with AT [place] foot ulcer Office Visit 08/30/2018 3:15p Reuben Fierro E11.621 Type 2 diabetes [facility] Sandee Singh M.D. 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 mellitus with AT [place] foot ulcer M86.9 Osteomyelitis, unspecified L97.529 Non-pressure chronic ulcer oth prt left foot w unsp severity Office Visit 08/09/2018 3:15p Reuben Fierro L97.529 Non-pressure Services Of Sandee Singh M.D. chronic ulcer oth AT [place] prt left foot w unsp severity Office Visit 07/26/2018 2:45p Reuben Fierro L97.529 Non-pressure Services Of Sandee Singh M.D. chronic ulcer oth AT [place] prt left foot w unsp severity Office Visit 07/06/2018 11:00a Orthopedic Vadim L97.52Gina Non-pressure Services Of Anthony Singh chronic ulcer oth [facility] prt left foot w unsp severity Office Visit 06/29/2018 3:15p Orthopedic Sheree Rolon M75.121 Complete Services Of rotatr-cuff [facility]. tear/ruptr of r shoulder, not trauma M75.122 Complete rotatr-cuff tear/ruptr of left shoulder, not trauma Office Visit 06/13/2018 2:00p Orthopedic Sheree Rolon M75.121 Complete Services Of rotatr-cuff [facility]. tear/ruptr of r shoulder, not trauma M17.0 Bilateral primary osteoarthritis of knee Office Visit 04/18/2018 10:45a Orthopedic Sheree Rolon M17.0 Bilateral primary Services Of osteoarthritis of [...] C.M.A. right knee Office Visit 01/20/2017 Reuben Rolon M75.122 Complete rotatr- cuff 2:45p Services Of tear/ruptr of left [facility].M.A. shoulder, not trauma Office Visit 01/06/2017 Reuben Rloon M75.121 Complete rotatr- cuff 2:45p Services Of tear/ruptr of r [facility]. shoulder, not trauma S46.012D Strain of musc/tend the rotator cuff of left shoulder, subs Office Visit 12/28/2016 2:30p Reuben Rolon M25.511 Pain in right Services Of shoulder [facility].M.A. R07.9 Chest pain, unspecified R07.89 Other chest pain Office Visit 09/29/2016 3:15p Orthopedic Jasmina M67.432 Ganglion, left Services Of Anthony Calix wrist C.M.A. Office Visit 07/02/2016 2:15p Orthopedic Ducle Mcgill.072 Primary Services Of Anthony osteoarthritis, C.M.A. 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 left ankle and foot Office Visit 12/02/2015 9:30a Venus Morales R20.2 Paresthesia of Services Of garth Glasgow M.D. G60.3 Idiopathic progressive neuropathy G56.01 Carpal tunnel syndrome, right upper limb G56.02 Carpal tunnel syndrome, left upper limb Office Visit 11/18/2015 2:30p Orthopedic Sheree Rolon M75.121 Complete Services Of MD dexter Kirby.MNinfaANinfa tear/ruptr of r shoulder, not trauma Office Visit 11/13/2015 2:20p Orthopedic Susan M25.531 Pain in right Services Of Tegan wrist [facility].M.A. RPA-C Office Visit 10/28/2015 2:00p Orthopedic Vadim Cardona.072 Primary Services Of Anthony Singh osteoarthritis, C.M.A. 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 ankle and foot M19.071 Primary osteoarthritis, right ankle and foot Office Visit 05/15/2015 10:30a Venus Morales R20.2 Paresthesia of Services Of Sandee Worthington M.D. skin M79.604 Pain in right leg G60.3 Idiopathic progressive neuropathy G56.02 Carpal tunnel syndrome, left upper limb Office Visit 11/21/2014 9:45a Venus Morales 782.0 Skin Sensation Services [facility] Sandee Worthington M.D. Disturbance 356.4 Polyneuropathy Idiopathic Progress Office Visit 03/15/2014 10:45a Venus Morales 782.0 Skin Sensation [facility] Sandee Worthington M.D. Disturbance 729.5 Pain In Limb Office Visit 10/15/2013 11:00a Vitaliy/Venus Morales 729.5 Pain In Neurologic Serv Of Sandee Worthington M.D. Limb 782.0 Skin Sensation Disturbance Plan of Treatment Future Appointment(s):12/18/2018 7:30 am - OSCAR Dunn at [facility]01/03/2019 3:45 pm - Vadim Singh M.D. at [facility] AT Ryjfjdaf33/12/2019 7:30 am - Vadim Singh M.D. at [facility]12/06/2018 - Vadim Singh M.D.E11.621 Type 2 diabetes mellitus with foot ulcerFollow up:10-14 days hasszcB08.9 Osteomyelitis , unspecified
[2018-12-18] MEDS ORDERED: ceFAZolin 2 GM in NS PREMIX(*) 2 GM/100 ML BAG IVPB ONE (08:40)
[2018-12-18] MEDS ORDERED: Famotidine IV* 10 MG/ML 2 ML (20 mg) ONE (08:40)
[2018-12-18] MEDS ORDERED: Buffered Lidocaine 1% SYRIN* 1 ML/SYRINGE INTRADERM ONE (08:40)
[2018-12-18] MEDS ORDERED: Dexamethasone IV* 4 MG/ML 1 ML (4 MG) ONE (08:40)
[2018-12-18] MEDS: Buffered Lidocaine 1% SYRIN* 1 ML/SYRINGE INTRADERM ONE ×2 (09:08→15:35)
[2018-12-18] MEDS ORDERED: Lidocaine 2% PF * 5 ML VIAL ONE ×2 (10:37→10:38)
[2018-12-18] MEDS ORDERED: Bupivacaine 0.5%* 50 ML MDV VIAL ONE (10:37)
[2018-12-18] MEDS ORDERED: fentaNYL* 50 MCG/ML 2 ML VIAL (100 MCG VIAL) ONE (10:38)
[2018-12-18] MEDS ORDERED: Propofol* 10 MG/ML 20 ML BTL ONE (10:38)
[2018-12-18] MEDS ORDERED: Ondansetron INJ* 2 MG/ML VIAL ONE (11:38)
[2018-12-18] MEDS ORDERED: Magnesium Hydroxide LIQ* 30 ML UDC PO PRN (12:18)
[2018-12-18] MEDS ORDERED: traZODone TAB* 50 MG TAB PO PRN (12:26)
[2018-12-18] MEDS ORDERED: diPHENhydraMINE IV* 50 MG/ML 1 ml VIAL (BENADRYL) IV PRN (12:26)
[2018-12-18] MEDS ORDERED: Ondansetron INJ* 2 MG/ML VIAL IV PRN (12:26)
[2018-12-18] MEDS ORDERED: Furosemide TAB* 20 MG PO PRN (12:32)
[2018-12-18] MEDS ORDERED: Albuterol HFA INHALER* 8 gm MDI INH PRN (12:32)
[2018-12-18] MEDS ORDERED: Levalbuterol 0.63MG/3ML NEB* UNIT OF USE INH ONE (13:06)
[2018-12-18] MEDS ORDERED: Spiriva HANDIHALER DEVICE (NF) 1 EACH DEVICE INH ONE (15:00)
[2018-12-18] MEDS: oxyCODONE TAB* 5 MG TAB PO PRN ×2 (15:01→21:09)
[2018-12-18] MEDS: Acetaminophen TAB* 325 MG PO SCH ×2 (15:25→22:03)
[2018-12-18] MEDS: ceFAZolin 1 GM ADVAN(*) 1 GM in NS 0.9% 50 ML* 50 ML IVPB SCH (15:51)
[2018-12-18] MEDS: oxyCODONE SR TAB(*) 20 MG TAB.SR PO SCH ×2 (15:51→21:09)
[2018-12-18] MEDS: Potassium Chlor TAB* 20 MEQ TAB.ER PO SCH (17:38)
[2018-12-18] MEDS: Pantoprazole TAB * 40 MG TAB PO SCH (17:39)
[2018-12-18] MEDS: Montelukast Sodium TAB* 10 MG PO SCH (17:39)
[2018-12-18] MEDS: Atenolol TAB* 25 MG PO SCH (17:39)
[2018-12-18] MEDS: oxyCODONE/Acetamin 5/325 MG* TAB PO PRN ×2 (17:39→23:08)
[2018-12-18] MEDS: Cholecalciferol TAB* 1000 UNITS PO SCH (17:39)
[2018-12-18] MEDS: Hydrochlorothiazide TAB* 25 MG PO SCH (17:40)
[2018-12-18] MEDS: CMC:Anastrozole (NF) 1 MG TAB PO SCH (17:40)
[2018-12-18] MEDS: Thyroid TAB* 60 MG PO SCH (17:40)
[2018-12-18] MEDS ORDERED: Chlorpheniramine Maleate TAB* 4 MG PO SCH (18:00)
[2018-12-18] MEDS: Mometasone/Formoter 100/5 MDI INH SCH (19:53)
[2018-12-18] MEDS: Docusate CAP* 100 MG PO SCH (21:09)
[2018-12-18] MEDS: Magnesium Hydroxide LIQ* 30 ML UDC PO SCH (21:09)
[2018-12-18] MEDS: Chlorpheniramine Maleate TAB* 4 MG PO SCH (21:09)
--- NOTE | 2018-12-18 22:05 | OP ---
DATE OF OPERATION: 12/18/18 - ROOM #332 DATE OF : 55 SURGEON: Vadim Singh MD. REEL BLADE BENDER FURNACE TENDER: Tamara Arredondo PA-C. PRE-OP DIAGNOSES: Osteomyelitis, right great toe, and early osteomyelitis, left midfoot, with a subcutaneous abscess and chronic ulcer. POST-OP DIAGNOSES: Osteomyelitis, right great toe, and early osteomyelitis, left midfoot, with a subcutaneous abscess and chronic ulcer. OPERATIVE PROCEDURE: Disarticulation, right first MTP joint, and excision of ulcer, bursa, and ostectomy, left medial midfoot. DESCRIPTION OF PROCEDURE: The patient was taken to the operating room where an ankle Esmarch was applied as well as a transverse elliptical incision at the base of the first proximal phalanx, right great toe, and incised down through the extensor tendon and flexor tendons, and then subperiosteally dissected back to the MTP joint, which was disarticulated. The toe was then removed and sent to Pathology. Local cultures were taken. We irrigated thoroughly, closing after irrigation and hemostasis with 2-0 Monocryl sutures and 3-0 nylon for the skin. We then made a 6-cm longitudinal incision in an elliptical fashion, encapsulating the ulcer at the plantar medial midfoot. This was excised as well as the subcutaneous bursa. Cultures were sent as well. There was a prominent mid tarsal bone, which was projecting down toward the ulcer. This was removed with the microsagittal saw. This left a nice flat surface. The bone being sent to Pathology as well. We then irrigated thoroughly, dropping the tourniquet with hemostasis obtained. We closed with 2-0 Monocryl in the deep tissues, 3-0 Monocryl for subcu, and 2-0 Prolene for the skin. Compression dressings applied bilaterally. [id number]/[facility] #: [id number] [facility]
[2018-12-19] MEDS: ceFAZolin 1 GM ADVAN(*) 1 GM in NS 0.9% 50 ML* 50 ML IVPB SCH ×4 (00:29→23:42)
[2018-12-19] MEDS: oxyCODONE TAB* 5 MG TAB PO PRN ×5 (03:08→22:48)
[2018-12-19] MEDS: oxyCODONE/Acetamin 5/325 MG* TAB PO PRN ×2 (05:06→09:19)
[2018-12-19] MEDS: ALPRAZolam TAB* 0.25 MG PO PRN ×3 (05:10→21:37)
[2018-12-19] MEDS: Acetaminophen TAB* 325 MG PO SCH ×2 (05:11→13:57)
[2018-12-19 06:51] LABS: Hematocrit 29 % (35-47); Hemoglobin 9.8 g/dL (12.0-16.0); Mean Platelet Volume 8.4 fL (7.4-10.4); Platelet Count 332 10^3/uL (150-450)
[2018-12-19 07:23] LABS: BUN/Creatinine Ratio 15.5 (8-20); Calcium 8.9 mg/dL (8.6-10.3); EGFR African American 82.9 (>60); EGFR Non-African American 68.5 (>60); Potassium 3.9 mmol/L (3.5-5.0)
[2018-12-19] MEDS: oxyCODONE SR TAB(*) 20 MG TAB.SR PO SCH ×3 (08:05→21:38)
[2018-12-19] MEDS: Citalopram TAB* 10 MG PO SCH (08:06)
[2018-12-19] MEDS: Docusate CAP* 100 MG PO SCH ×2 (08:06→23:54)
[2018-12-19] MEDS: Enoxaparin(*) 40 MG/0.4 ML SYR SUBCUT SCH (08:06)
[2018-12-19] MEDS: Magnesium Hydroxide LIQ* 30 ML UDC PO SCH ×2 (08:07→23:54)
[2018-12-19] MEDS ORDERED: Ketorolac INJ* 30 MG/ML 1 ML VIAL IV PUSH ONE (08:31)
--- NOTE | 2018-12-19 09:18 | PN ---
Progress Note - Progress Note Date of Service: 12/19/18 SOAP: Subjective: []Pt seen at bedside. Both feet are painful. Denies fever, chills, CP, SOB, dizziness, nausea. She sees Dr Short outpatient for pain mgmt. Objective: []Gen: Appears well, NAD BL LE dressings CDI, able to wiggle exposed toes, cap refill less than two seconds distally, decreased sensation distally consistent with baseline. Calves supple and nontender without erythema or edema. Assessment: []Osteomyelitis, right great toe, and early osteomyelitis, left midfoot, with a subcutaneous abscess and chronic ulcer. POD 1 sp Disarticulation, right first MTP joint, and excision of ulcer, bursa, and ostectomy, left medial midfoot. Plan: []Heel WB BL LE Refused PT due to pain this morning. ID consulted: on ancef, no growth on cultures thus far Sees Dr Short outpatient for pain management, he has been contacted and will see her this morning Avoid NSAIDS as patient had a bleeding GI ulcer in 2010, patient refuses toradol Will need rehab placement, CM aware Vital Signs Temp 98.5 F 12/19/18 07:21 Pulse 51 12/19/18 07:21 Resp 16 12/19/18 09:19 BP 124/52 12/19/18 07:21 Pulse Ox 95 12/19/18 07:21 Intake & Output 12/18/18 12/19/18 12/19/18 18:59 06:59 18:59 Intake Total 1000 2048 Output Total 200 1700 Balance 800 348 Weight 172 lb Intake: IV Fluids 1000 1048 ABX - CEFAZOLIN 110 LR 1000 938 Oral 1000 Output: Urine 200 1700 Other: Estimated Void Small # Voids 1 Laboratory Last Values Hgb 9.8 g/dL (12.0-16.0) L 12/19/18 06:22 Hct 29 % (35-47) L 12/19/18 06:22 Plt Count 332 10^3/uL (150-450) 12/19/18 06:22 MPV 8.4 fL (7.4-10.4) 12/19/18 06:22 Sodium 135 mmol/L (135-145) 12/19/18 06:22 Potassium 3.9 mmol/L (3.5-5.0) 12/19/18 06:22 Chloride 99 mmol/L (101-111) L 12/19/18 06:22 Carbon Dioxide 29 mmol/L (22-32) 12/19/18 06:22 Anion Gap 7 mmol/L (2-11) 12/19/18 06:22 BUN 13 mg/dL (6-24) 12/19/18 06:22 Creatinine 0.84 mg/dL (0.51-0.95) 12/19/18 06:22 Est GFR ( Amer) 82.9 (>60) 12/19/18 06:22 Est GFR (Non-Af Amer) 68.5 (>60) 12/19/18 06:22 BUN/Creatinine Ratio 15.5 (8-20) 12/19/18 06:22 Glucose 102 mg/dL (70-100) H 12/19/18 06:22 Calcium 8.9 mg/dL (8.6-10.3) 12/19/18 06:22
[2018-12-19] MEDS ORDERED: Ketorolac INJ* 30 MG/ML 1 ML VIAL ONE (09:25)
--- NOTE | 2018-12-19 11:56 | CONSULT ---
Consult Consult: INPATIENT PAIN CONSULTATION Ayah Arthur (Cindy) is a 63 year old longtime smoker, with no history of EtOH or diabetes. She has a history of breast cancer and underwent XRT to that area. She has had burning pain in her feet for 15 years. She was diagnosed with peripheral neuropathy years ago by Dr. Worthington. She has had difficulties with ulcers on her feet as well. She has been on chronic opioid therapy for years. She was tried on Lyrica and didn't tolerate it and tried Gabapentin and had stomach irritation. Most recently for her pain, she is on OxyContin 20 mg TID, Pamelor, 20 mg at HS, Oxycodone, 10 mg 8 times a day, and Ultram 100 mg 4 times a day. She was admitted yesterday for a disarticulation of the right first MTP joint and an excision of the ulcer of bursa, ostectomy left medial midfoot. I am asked to consult on her postop pain management. Currently she is getting OxyContin 20 TID, Oxycodone 10 mg 4 times a day and Percocet 1-2 Q 4H PRN. PAST MEDICAL HISTORY: Breast Cancer, COPD, Asthma, hypothyroidism, anxiety Allergies Allergy/AdvReac Type Severity Reaction Status Date / Time Latex, Natural Rubber Allergy Joint Pain Verified 12/18/18 08:49 NSAIDS (Non-Steroidal Allergy GI Upset Verified 12/18/18 08:49 Anti-Inflamma sulfamethoxazole Allergy Itching Verified 12/18/18 08:49 [From Bactrim] trimethoprim [From Bactrim] Allergy Itching Verified 12/18/18 08:49 aspertaine Allergy Difficulty Uncoded 12/18/18 08:49 Breathing BANDAIDS, PAPER TAPE, Allergy SEVERE Uncoded 12/18/18 08:49 ADHESIVE IRRITATION ENVIORMENTAL Allergy Eyes Uncoded 12/18/18 08:49 Itchy/Swollen/Red/Watery Current Medications Acetaminophen (Tylenol Tab*) 975 mg PO Q8HR [facility] Last Admin: 12/19/18 05:11 Dose: Not Given Albuterol (Ventolin Hfa Inhaler*) 2 puff INH Q4HR PRN PRN Reason: Allergy Symptoms Alprazolam (Xanax Tab*) 0.25 mg PO Q6H PRN PRN Reason: ANXIETY Last Admin: 12/19/18 05:10 Dose: 0.25 mg Anastrozole (Arimidex (Nf)) 1 mg PO QPM [facility] Last Admin: 12/18/18 17:40 Dose: 1 mg Atenolol (Tenormin Tab*) 25 mg PO QPM [facility] Last Admin: 12/18/18 17:39 Dose: 25 mg Chlorpheniramine Maleate (Chlortrimeton Tab*) 4 mg PO BEDTIME [facility] Last Admin: 12/18/18 21:09 Dose: 4 mg Cholecalciferol (Vitamin D Tab*) 4,000 units PO QPM [facility] Last Admin: 12/18/18 17:39 Dose: 4,000 units Citalopram Hydrobromide (Celexa Tab*) 10 mg PO QAM [facility] Last Admin: 12/19/18 08:06 Dose: 10 mg Diphenhydramine HCl (Benadryl Iv*) 25 mg IV Q6H PRN PRN Reason: itching Docusate Sodium (Colace Cap*) 100 mg PO BID [facility] Last Admin: 12/19/18 08:06 Dose: Not Given Enoxaparin Sodium (Lovenox(*)) 40 mg SUBCUT Q24H [facility] Last Admin: 12/19/18 08:06 Dose: 40 mg Furosemide (Lasix Tab*) 20 mg PO QPM PRN PRN Reason: NEUROPATHY Hydrochlorothiazide (Hydrodiuril Tab*) 50 mg PO QPM [facility] Last Admin: 12/18/18 17:40 Dose: 50 mg Cefazolin Sodium 1 gm/ Sodium (Chloride) 50 mls @ 200 mls/hr IVPB Q8H [facility] Last Admin: 12/19/18 08:07 Dose: 200 mls/hr Lactated Ringer's (Lactated Ringers 1000 Ml Bag*) 1,000 mls @ 75 mls/hr IV PER RATE [facility] Last Admin: 12/19/18 03:30 Dose: 75 mls/hr Magnesium Hydroxide (Milk Of Magnesia Liq*) 30 ml PO BID [facility] Last Admin: 12/19/18 08:07 Dose: Not Given Magnesium Hydroxide (Milk Of Magnesia Liq*) 30 ml PO Q6H PRN PRN Reason: constipation Mometasone Furoate/Formoterol Fumar (Dulera 100/5 Mdi*) 2 puff INH BID [facility] Last Admin: 12/18/18 19:53 Dose: 2 puff Montelukast Sodium (Singulair Tab*) 10 mg PO QPM [facility] Last Admin: 12/18/18 17:39 Dose: 10 mg Ondansetron HCl (Zofran Inj*) 4 mg IV Q6H PRN PRN Reason: nausea Oxycodone HCl (Oxycontin(*)) 20 mg PO TID [facility] Last Admin: 12/19/18 08:05 Dose: 20 mg Oxycodone HCl (Roxycodone Tab*) 10 mg PO Q6H PRN PRN Reason: PAIN Last Admin: 12/19/18 03:08 Dose: 10 mg Oxycodone/Acetaminophen (Percocet 5/325 Tab*) 1 tab PO Q4H PRN PRN Reason: PAIN - MODERATE Oxycodone/Acetaminophen (Percocet 5/325 Tab*) 2 tab PO Q4H PRN PRN Reason: PAIN - SEVERE Last Admin: 12/19/18 09:19 Dose: 2 tab Pantoprazole Sodium (Protonix Tab*) 40 mg PO QPM [facility] Last Admin: 12/18/18 17:39 Dose: 40 mg Potassium Chloride (Klor Con Er Tab*) 20 meq PO QPM [facility] Last Admin: 12/18/18 17:38 Dose: 20 meq Thyroid (Thyroid Tab*) 90 mg PO QPM [facility] Last Admin: 12/18/18 17:40 Dose: 90 mg Trazodone HCl (Desyrel Tab*) 25 mg PO BEDTIME PRN PRN Reason: insomnia SOCIAL HISTORY: Smoker, no alcohol. Lives with ROS: No SOB or angina Vital Signs Temp Pulse Resp BP Pulse Ox 99.2 F 52 16 120/51 97 12/19/18 11:04 12/19/18 11:04 12/19/18 11:04 12/19/18 11:04 12/19/18 11:04 EXAM: LUNGS: Clear HEART: Reg rhythm ABDOMEN: Soft EXTREMITIES: both foot bandaged NEUROLOGIC: decreased sensation in feet. Able to move arms and legs ASSESSMENT: 1. Peripheral Neuropathy 2. Chronic Pain 3. Chronic Opioid Use PLAN: I need to adjust her oxycodone dose to Q3 PRN, add oxycodone 15 mg Q3 PRN , d/c percocet, add Pamelor. I will hold off Tramadol for now. I will follow.
[2018-12-19] MEDS ORDERED: oxyCODONE TAB* 5 MG TAB PO PRN (12:14)
[2018-12-19] MEDS: Mometasone/Formoter 100/5 MDI INH SCH ×2 (12:29→19:10)
--- NOTE | 2018-12-19 14:08 | CONS ---
CONSULTATION REPORT: DATE OF CONSULT: 12/19/18 PRIMARY CARE PROVIDER: Dr. Vadim Olguin. PROVIDER REQUESTING CONSULTATION: Dr. Vadim Singh. CONSULTING SERVICE: Infectious Disease. PROVIDER: Shantel Killian NP ATTENDING PROVIDER: Dr. Anish Mcknight.* (DICTATED BY SHANTEL KILLIAN NP) REASON FOR CONSULT: Osteomyelitis of the right first toe and left mid foot. IMPRESSION: 1. Right first toe acute osteomyelitis. MRI noted abscess in the distal and proximal phalanx of the first toe. First metatarsal phalanges and interphalangeal joint effusions suspicious for septic arthritis including at the first metatarsophalangeal joint. Diffuse superficial deep tissue edema throughout the forefoot. She underwent a right first metatarsophalangeal disarticulation, excision of ulcer, bursa, and ostectomy. 2. Left midfoot acute osteomyelitis with subcutaneous abscess and chronic ulcer. Status post excision of ulcer, bursa and ostectomy of the left medial midfoot. MRI showing deep to flexor hallucis longus tendon fluid collection, soft tissue swelling with no evidence of bone marrow replacement, likely reactive edema noted between the subtalar joint between the talus and the calcaneus as well as between the calcaneus and cuboid. 3. Polyneuropathy. 4. Chronic pain. 5. Obesity, BMI 27.8. RECOMMENDATIONS/PLAN: Recommend continuing cefazolin for now while we await cultures obtained in the operating room. Further recommendations will be based off of culture results and the patient's clinical course, suspect she may require an extended course of IV ABX. We will continue to follow along. HISTORY OF PRESENT ILLNESS: Ms. Arthur is a 63-year-old female with past medical history significant for osteoarthritis, polyneuropathy, asthma, chronic pain, hypothyroidism, obesity, duodenal ulcer, breast cancer status post lumpectomy and radiation, and GERD who has been following closely with Orthopedic Surgery for bilateral lower extremity neuropathy and deformity. She states that her right first toe has been red and swollen for a few weeks and that she has had a wound to her left midfoot since June, which is approximately 6 months. Orthopedic Surgery felt that she had a rocker-bottom deformity of the left midfoot with an abscess and early osteomyelitis and additionally right great toe with osteomyelitis, she is scheduled for surgery which she presented for on 12/18/18. She denies any fevers, chills, muscle pain , nausea, vomiting, diarrhea, urinary symptoms, rash, recent travel. She reports pain in bilateral feet postoperatively. PAST MEDICAL HISTORY: 1. Osteoarthritis. 2. Polyneuropathy. 3. Asthma. 4. Chronic pain. 5. Bilateral lower extremity deformities. 6. Hypertension. 7. Hypothyroidism. 8. Obesity. 9. Duodenal ulcer. 10. Beast cancer status post radiation and lumpectomy. 11. GERD. PAST SURGICAL HISTORY: 1. Status post bilateral carpal tunnel release. 2. Status post umbilical hernia repair. 3. Status post tonsillectomy. 4. Status post right breast lumpectomy. MEDICATIONS: Home Medications: 1. OxyContin 20 mg by mouth 3 times daily. 2. Tramadol 100 mg by mouth every 6 hours as needed for pain. 3. Thyroid 90 mg by mouth every evening. 4. Spiriva inhaler 1 inhalation twice daily. 5. Potassium chloride 20 mEq by mouth every evening. 6. Pantoprazole 40 mg by mouth daily. 7. Oxycodone 10 mg by mouth every 6 hours as needed for pain. 8. Multivitamin 1 tablet by mouth daily. 9. Singulair 10 mg by mouth every evening. 10. Hydrochlorothiazide 50 mg by mouth every evening. 11. Furosemide 20 mg by mouth every evening as needed for lower extremity edema. 12. Celexa 10 mg by mouth every morning. 13. Vitamin D3 of 4000 units by mouth every evening. 14. Chlorpheniramine maleate 4 mg by mouth every evening. 15. Atenolol 25 mg by mouth daily. 16. Anastrozole 1 mg by mouth daily. 17. Albuterol HFA inhaler 2 puffs inhalation every 4 hours as needed for shortness of breath or wheeze. 18. Xanax 0.25 mg by mouth every 6 hours as needed for anxiety. Hospital Medications: 1. Acetaminophen 975 mg by mouth every 8 hours. 2. Albuterol HFA inhaler 2 puffs inhalation every 4 hours as needed for shortness of breath or wheeze. 3. Xanax 0.25 mg by mouth every 6 hours as needed for anxiety. 4. Anastrozole 1 mg by mouth every evening. 5. Atenolol 25 mg by mouth daily. 6. Cefazolin 1 g IV every 8 hours. 7. Chlorpheniramine maleate 4 mg by mouth daily. 8. Vitamin D 4000 units by mouth every evening. 9. Celexa 10 mg by mouth every day. 10. Benadryl 25 mg IV every 6 hours as needed for itching. 11. Colace 100 mg by mouth twice daily. 12. Lovenox 40 mg subcutaneous daily. 13. Furosemide 20 mg by mouth every evening as needed for lower extremity edema. 14. Hydrochlorothiazide 50 mg by mouth every evening. 15. Lactated Ringer's 75 mL an hour intravenously. 16. Milk of magnesia 30 mL by mouth twice daily until BM, then 30 mL by mouth every 6 hours as needed for constipation. 17. Dulera 100/5 MDI 2 puffs inhalation twice daily. 18. Singulair 10 mg by mouth daily. 19. Zofran 4 mg IV every 6 hours as needed for nausea. 20. OxyContin 20 mg by mouth 3 times daily. 21. Oxycodone 10 mg by mouth every 6 hours as needed for pain. 22. Percocet 5/325 one to two tablets by mouth every 4 hours as needed for pain. 23. Pantoprazole 40 mg by mouth every evening. 24. Potassium chloride 20 mEq by mouth every evening. 25. Thyroid 90 mg by mouth every evening. 26. Trazodone 25 mg by mouth at bedtime as needed for sleep. ALLERGIES: LATEX, NSAIDS, BACTRIM caused itching, ASPARTAME, ADHESIVE TAPE, ENVIRONMENTAL. FAMILY HISTORY: Denies family history of recurrent resistant infections, coronary artery disease, diabetes, or cancer. SOCIAL HISTORY: Denies alcohol or recreational drug use. She is a current smoker, smoking one-half pack a day. She has an approximately 45-year smoking history. REVIEW OF SYSTEMS: I performed a 10-point review of systems. All the pertinent positives and negatives are mentioned in the history of present illness. The remaining review of systems are negative. PHYSICAL EXAM: Vital Signs: Temperature 98.5, heart rate 51, respiratory rate 16, O2 sat 95% on room air, blood pressure 125/52. General Appearance: Alert, pleasant, appears to be in no acute distress. Head normocephalic and atraumatic. Pupils are equal, reactive to light. Extraocular movements intact. No subconjunctival hemorrhage. Moist mucous membranes. Neck: Supple. No lymphadenopathy. Neurological: Drowsy, oriented to person and place. Cranial nerves II through XII are grossly intact. Cardiovascular: Regular rate and rhythm. S1 and S2 present. No murmurs, rubs, or gallops. Respiratory: No accessory muscle use. The lungs are clear to auscultation bilaterally. Abdomen : Bowel sounds present. Abdomen is soft, nontender, and nondistended. Extremities: No lower extremity edema. Musculoskeletal: No clubbing or cyanosis noted. Exhibits good strength in all extremities. Psychological: Calm and cooperative. Skin: No rashes or abnormalities seen in bilateral feet with Mina wrap dressings in place, no surrounding erythema. DIAGNOSTIC STUDIES/LAB DATA: Sodium 135, potassium 3.9, chloride 99, CO2 of 29 , BUN 13, creatinine 0.84, glucose 102. Hemoglobin 9.8, hematocrit 29, platelet count 332. Please see impression and recommendations outlined above, recommendations have been discussed with HA Toribio. Case has been reviewed with the attending, Dr. Mcknight, who agrees with the plan of care. Reviewed by PLACIDO TAFOYA 12/20/18 1823 [id number]/[facility] #: [id number] POLLY
[2018-12-19] MEDS ORDERED: NS 0.9% 50 ML* 50 ML ONE (16:00)
[2018-12-19] MEDS: Potassium Chlor TAB* 20 MEQ TAB.ER PO SCH (18:26)
[2018-12-19] MEDS: CMC:Anastrozole (NF) 1 MG TAB PO SCH (18:26)
[2018-12-19] MEDS: Hydrochlorothiazide TAB* 25 MG PO SCH (18:27)
[2018-12-19] MEDS: Pantoprazole TAB * 40 MG TAB PO SCH (18:27)
[2018-12-19] MEDS: Thyroid TAB* 60 MG PO SCH (18:28)
[2018-12-19] MEDS: Montelukast Sodium TAB* 10 MG PO SCH (18:28)
[2018-12-19] MEDS: Cholecalciferol TAB* 1000 UNITS PO SCH (18:33)
[2018-12-19] MEDS: Atenolol TAB* 25 MG PO SCH (18:37)
[2018-12-19] MEDS: Chlorpheniramine Maleate TAB* 4 MG PO SCH (23:41)
[2018-12-19] MEDS: Nortriptyline CAP* 10 MG PO SCH (23:41)
[2018-12-20] MEDS: Acetaminophen TAB* 325 MG PO SCH ×4 (00:53→21:28)
[2018-12-20] MEDS: oxyCODONE TAB* 5 MG TAB PO PRN ×7 (01:37→21:27)
[2018-12-20] MEDS: ALPRAZolam TAB* 0.25 MG PO PRN (04:28)
[2018-12-20 05:23] LABS: Mean Platelet Volume 8.3 fL (7.4-10.4); Platelet Count 335 10^3/uL (150-450)
[2018-12-20] MEDS: ceFAZolin 1 GM ADVAN(*) 1 GM in NS 0.9% 50 ML* 50 ML IVPB SCH ×2 (07:47→16:26)
[2018-12-20] MEDS: Mometasone/Formoter 100/5 MDI INH SCH ×3 (08:20→19:16)
[2018-12-20] MEDS: Citalopram TAB* 10 MG PO SCH (09:47)
[2018-12-20] MEDS: Enoxaparin(*) 40 MG/0.4 ML SYR SUBCUT SCH (09:47)
[2018-12-20] MEDS: oxyCODONE SR TAB(*) 20 MG TAB.SR PO SCH ×3 (09:48→21:27)
[2018-12-20] MEDS: Docusate CAP* 100 MG PO SCH ×2 (11:39→21:28)
[2018-12-20] MEDS: Magnesium Hydroxide LIQ* 30 ML UDC PO SCH ×2 (11:39→21:28)
--- NOTE | 2018-12-20 16:41 | PN ---
Progress Note - Progress Note Date of Service: 12/20/18 SOAP: Subjective: []Pt seen at bedside, she continues to promote pain of BL LE. Denies CP, SOB, dizziness, nausea. Objective: []Gen: Appears well, NAD BL LE dressings CDI, able to wiggle exposed toes, cap refill less than two seconds distally, decreased sensation distally consistent with baseline. Calves supple and nontender without erythema or edema. Assessment: []Osteomyelitis, right great toe, and early osteomyelitis, left midfoot, with a subcutaneous abscess and chronic ulcer. POD 2 sp Disarticulation, right first MTP joint, and excision of ulcer, bursa, and ostectomy, left medial midfoot. Plan: []Heel WB BL LE ID consulted: on ancef, + GBS Sees Dr Short outpatient for pain management, he is helping to manage her pain in house Avoid NSAIDS as patient had a bleeding GI ulcer in 2010, patient refuses toradol Will need rehab placement, CM aware, [facility] referral in Vital Signs Temp 98.8 F 12/20/18 15:41 Pulse 72 12/20/18 15:41 Resp 18 12/20/18 16:39 BP 131/69 12/20/18 15:41 Pulse Ox 97 12/20/18 15:41 Intake & Output 12/19/18 12/20/18 12/20/18 18:59 06:59 18:59 Intake Total 740 900 960 Output Total 1200 1500 1750 Balance -460 -600 -790 Intake: IV Fluids 380 LR 380 IVPB 120 ABX - CEFAZOLIN 120 Oral 240 900 960 Output: Urine 1200 1500 1750 Laboratory Last Values Hgb 9.8 g/dL (12.0-16.0) L 12/19/18 06:22 Hct 29 % (35-47) L 12/19/18 06:22 Plt Count 335 10^3/uL (150-450) 12/20/18 05:08 MPV 8.3 fL (7.4-10.4) 12/20/18 05:08 Sodium 135 mmol/L (135-145) 12/19/18 06:22 Potassium 3.9 mmol/L (3.5-5.0) 12/19/18 06:22 Chloride 99 mmol/L (101-111) L 12/19/18 06:22 Carbon Dioxide 29 mmol/L (22-32) 12/19/18 06:22 Anion Gap 7 mmol/L (2-11) 12/19/18 06:22 BUN 13 mg/dL (6-24) 12/19/18 06:22 Creatinine 0.84 mg/dL (0.51-0.95) 12/19/18 06:22 Est GFR ( Amer) 82.9 (>60) 12/19/18 06:22 Est GFR (Non-Af Amer) 68.5 (>60) 12/19/18 06:22 BUN/Creatinine Ratio 15.5 (8-20) 12/19/18 06:22 Glucose 102 mg/dL (70-100) H 12/19/18 06:22 Calcium 8.9 mg/dL (8.6-10.3) 12/19/18 06:22
[2018-12-20] MEDS: Cholecalciferol TAB* 1000 UNITS PO SCH (18:09)
[2018-12-20] MEDS: Atenolol TAB* 25 MG PO SCH (18:09)
[2018-12-20] MEDS: Montelukast Sodium TAB* 10 MG PO SCH (18:10)
[2018-12-20] MEDS: Pantoprazole TAB * 40 MG TAB PO SCH (18:10)
[2018-12-20] MEDS: CMC:Anastrozole (NF) 1 MG TAB PO SCH (18:11)
[2018-12-20] MEDS: Hydrochlorothiazide TAB* 25 MG PO SCH (18:11)
[2018-12-20] MEDS: Thyroid TAB* 60 MG PO SCH (18:12)
[2018-12-20] MEDS: Potassium Chlor TAB* 20 MEQ TAB.ER PO SCH (18:13)
[2018-12-20] MEDS: Chlorpheniramine Maleate TAB* 4 MG PO SCH (21:27)
[2018-12-20] MEDS: Nortriptyline CAP* 10 MG PO SCH (21:28)
[2018-12-21] MEDS: ceFAZolin 1 GM ADVAN(*) 1 GM in NS 0.9% 50 ML* 50 ML IVPB SCH ×2 (00:06→07:36)
[2018-12-21] MEDS: ALPRAZolam TAB* 0.25 MG PO PRN ×2 (00:06→06:02)
[2018-12-21] MEDS: oxyCODONE TAB* 5 MG TAB PO PRN ×3 (01:13→10:48)
[2018-12-21] MEDS: Acetaminophen TAB* 325 MG PO SCH (06:04)
[2018-12-21 06:38] LABS: Mean Platelet Volume 8.2 fL (7.4-10.4); Platelet Count 345 10^3/uL (150-450)
[2018-12-21] MEDS: Mometasone/Formoter 100/5 MDI INH SCH (08:22)
[2018-12-21] MEDS: Citalopram TAB* 10 MG PO SCH (09:29)
[2018-12-21] MEDS: Enoxaparin(*) 40 MG/0.4 ML SYR SUBCUT SCH (09:30)
[2018-12-21] MEDS: oxyCODONE SR TAB(*) 20 MG TAB.SR PO SCH (09:30)
[2018-12-21] MEDS: Magnesium Hydroxide LIQ* 30 ML UDC PO SCH (09:33)
[2018-12-21] MEDS: Docusate CAP* 100 MG PO SCH (09:33)
--- NOTE | 2018-12-21 11:25 | PN ---
Progress Note - Progress Note Date of Service: 12/21/18 SOAP: Subjective: POD #3 Right great toe amputation, left midfoot debridement with ostectomy. Doing ok, c/o moderate pain. Denies CP, SOB, f/c, n/v. Has been accepted at [facility] to go today. Objective: Vitals: Temp Pulse Resp BP Pulse Ox 98.8 F 66 18 111/53 93 12/21/18 07:55 12/21/18 08:22 12/21/18 10:48 12/21/18 07:55 12/21/18 08:22 Gen: A&Ox3, NAD at rest sitting in chair RLE: Incision C/D/I, mild edema and ecchymosis, no erythema. +f/e at MTPs, sensation decreased due to neuropathy, DP 2+ Labs: Laboratory Results - last 24 hr 12/21/18 06:27 Plt Count 345 MPV 8.2 Microbiology 12/18/18 11:29 Wound Anaerobic Culture - Preliminary 12/18/18 11:29 Foot Left Skin and Soft Tissue MRSA/MSSA (PCR - Final Mrsa Negative S.aureus Negative 12/18/18 11:29 Foot Left Gram Stain - Final 12/18/18 11:29 Foot Left Wound Culture - Preliminary Strep Agalactiae - (Group B) 12/18/18 11:29 Wound Anaerobic Culture - Preliminary No Growth Day 3 12/18/18 11:29 Toe Gram Stain - Final 12/18/18 11:29 Toe Wound Culture - Preliminary No Growth Day 3 Assessment: POD #3 Right great toe amputation, left midfoot debridement with ostectomy Plan: D/C to [facility] today Continue IV abx per ID Dry dressing change as needed Heel WBAT B/L LE with post op shoe
[2018-12-21 11:32] VITALS: BP 123/67
--- NOTE | 2018-12-21 13:51 | DS ---
DISCHARGE SUMMARY: DATE OF ADMISSION: 12/18/18 DATE OF DISCHARGE: 12/21/18 PROVIDER: Vadim Singh MD.* (DICTATED BY HA MONDRAGON) DISCHARGE CONDITION: Stable. DISCHARGE DISPOSITION: To [facility]. HISTORY OF PRESENT ILLNESS: Ayah is a 63-year-old female who has had multiple ulcers to bilateral lower extremities due to severe lower extremity neuropathy with deformity. Her right great toe had been increasingly more swollen with neuropathic pain and some drainage. She also has an ulcer to the mid foot of the left foot. She has tried wound care and antibiotics without good relief. It was then recommended that she undergo surgical excision of the ulcerations and bony prominences to relieve the chronic osteomyelitis. HOSPITAL COURSE: On 12/18/18, the patient was admitted to [facility] and underwent a successful right great toe amputation and left mid foot debridement with ostectomy. She recovered briefly in the post anesthesia care unit and was transferred to the short-stay surgical unit in stable condition. The patient was then consulted on by infectious disease service as well as pain management service. The patient states that since surgery she has had a significant amount of pain; however, this has been controlled with the medication regimen recommended by Dr. Short. She has worked well with physical therapy throughout the hospital course and has been ambulating with a postop shoe on bilateral lower extremities. She was evaluated by the [facility] and was accepted for inpatient rehab. Throughout the hospital course, the patient' s vital signs have remained stable. H and H was 9.8 and 29. The patient is asymptomatic with the anemia. DISCHARGE MEDICATIONS: 1. Tylenol 975 mg p.o. q.8 hours. 2. Ventolin inhaler 2 puffs inhaled q.4 hours p.r.n. 3. Xanax 0.25 mg p.o. q.6 hours p.r.n. 4. Arimidex 1 mg p.o. q.p.m. 5. Tenormin 25 mg p.o. q.p.m. 6. Cefazolin 1 g IV q.8 hours. 7. Chlor-Trimeton 4 mg p.o. q.h.s. 8. Cholecalciferol 4000 units p.o. q. day. 9. Celexa 10 mg p.o. q. day. 10. Benadryl 25 mg q.6 hours p.r.n. 11. Colace 100 mg p.o. b.i.d. 12. Lovenox 40 mg subcu q. 24 hours. 13. Lasix 20 mg p.o. q. day. 14. Hydrochlorothiazide 50 mg p.o. q. day. 15. Singulair 10 mg q. day. 16. Dulera inhaler 2 puffs inhaled b.i.d. 17. Nortriptyline 20 mg p.o. q.h.s. 18. Zofran 4 mg q.6 hours p.r.n. 19. OxyContin 20 mg p.o. t.i.d. 20. Oxycodone 10 mg p.o. q.3 hours p.r.n. 21. Protonix 40 mg p.o. q. day. 22. Potassium chloride 20 mEq daily. 23. Thyroid tabs 90 mg p.o. q. day. DISCHARGE INSTRUCTIONS: The patient will continue heel weightbearing bilateral lower extremities with postop shoe. The patient will have dry dressing changes as needed. She will follow up in the office with Dr. Singh upon discharge. Should she be in the [facility] for an extended length of time, we request orthopedics consult for suture removal. HA MONDRAGON [id number]/[facility] #: [id number] MTDD
== END 2018-12-21 12:30 | DRG 314 ==
LOC: AA 12-18 08:13 → SSU 12-18 14:05
PROVIDERS: ADMIT Orthopaedic Surgery; ATTEND Orthopaedic Surgery
PROC: 0MBT0ZZ Excision of Left Foot Bursa and Ligament, Open Approach (ICD-10-PCS; 2018-12-18)
PROC: 0Y6P0Z0 Detachment at Right 1st Toe, Complete, Open Approach (ICD-10-PCS; principal; 2018-12-18 09:45)
PROC: 0QBM0ZZ Excision of Left Tarsal, Open Approach (ICD-10-PCS; 2018-12-18 09:45)
DX: E11.621 Type 2 diabetes mellitus with foot ulcer (principal); M86.671 Other chronic osteomyelitis, right ankle and foot; M86.672 Other chronic osteomyelitis, left ankle and foot; L97.426 Non-pressure chronic ulcer of left heel and midfoot with bone involvement without evidence of necrosis; L97.516 Non-pressure chronic ulcer of other part of right foot with bone involvement without evidence of necrosis; B95.1 Streptococcus, group B, as the cause of diseases classified elsewhere; F17.210 Nicotine dependence, cigarettes, uncomplicated; E11.42 Type 2 diabetes mellitus with diabetic polyneuropathy; J44.9 Chronic obstructive pulmonary disease, unspecified; E03.9 Hypothyroidism, unspecified; E66.9 Obesity, unspecified; G89.29 Other chronic pain; M19.90 Unspecified osteoarthritis, unspecified site; F41.9 Anxiety disorder, unspecified; Z85.3 Personal history of malignant neoplasm of breast; Z88.6 Allergy status to analgesic agent; Z91.040 Latex allergy status; Z88.2 Allergy status to sulfonamides; Z88.8 Allergy status to other drugs, medicaments and biological substances; Z91.018 Allergy to other foods; Z91.048 Other nonmedicinal substance allergy status; Z68.27 Body mass index [BMI] 27.0-27.9, adult; Z92.3 Personal history of irradiation; Z79.84 Long term (current) use of oral hypoglycemic drugs; Z79.891 Long term (current) use of opiate analgesic; Z79.899 Other long term (current) drug therapy
CPT/HCPCS: 36415; 80048; 85014; 85018; 85049; 87070; 87073; 87077; 87184; 87186; 87205; 87640; 87641; 88305; 88311; 94640; A9270-GY; J0690; J1100; J1200; J1650; J1885; J2405; J2704; J3010; J3490

== ENCOUNTER 2019-03-28 07:56 | Day surgery (SDC) | payer BC ==
[~2019-03-28 07:56] MED LIST: Buffered Lidocaine 1% SYRIN* 1 ML/SYRINGE INTRADERM ONE; Cyclopentolate 1% OPTH.SOL* 2 ML BTL ONE; Ketorolac 0.5% OPHTH (NF) 0.5 % 5 ML BTL ONE; Lidocaine 1% MPF ** 5 ML VIAL ONE; Lidocaine 2% w/ EPI 1:200,000* 20 ML SDV VIAL ONE; Neomycin/Polymy/Dex OPTH.SUSP* MAXITROL 0.1% 5 ML ONE; Phenylephrine OPHTH SOL 2.5%* 2 ML ONE; Povidone Iodine 5% OPTH* 30 ML BTL ONE; Proparacaine 0.5% OPHTH.SOL* 15 ML BTL ONE; acetaZOLAMIDE TAB* 250 MG ONE
[2019-03-28 08:22] VITALS: BP 127/69
[2019-03-28] MEDS ORDERED: Midazolam* 1 MG/ML 2 ML VIAL (2 MG) ONE ×2 (08:29→08:30)
[2019-03-28] MEDS ORDERED: fentaNYL* 50 MCG/ML 2 ML VIAL (100 MCG VIAL) ONE (08:29)
--- NOTE | 2019-03-28 13:18 | OP ---
DATE OF OPERATION: 03/28/2019. DATE OF : 1955. SURGEON: Hugh Del Cid M.D. PREOPERATIVE DIAGNOSIS: Cataract left eye. POSTOPERATIVE DIAGNOSIS: Cataract left eye. OPERATIVE PROCEDURE: Extracapsular cataract extraction with intraocular lens implant left eye. PROCEDURE: The patient was brought to the operating room after being given 1/2% Alcaine with epineph rine drops in the preoperative area. The eye was prepped and draped in the usual sterile fashion. S terile drape and eyelid speculum were placed. Again, topical 1/2% Alcaine with epinephrine was given . A paracentesis incision was made at the 3 o'clock position with the No.75 blade. Clear cornea inc ision 2.2 x 2.2-mm was created at the 6 o'clock position starting at the anterior limbus using the 2. 2-mm keratome. The anterior chamber was irrigated with 0.4 mL of 1% non-preservative intracameral li docaine and filled with DisCoVisc. A capsulorrhexis was completed using the cystotome and the Utrata forceps. Hydrodissection was performed with balanced salt solution. The lens nucleus was removed wi th the Phacoemulsification handpiece without incident. Cortex was removed with the irrigation-aspira tion handpiece. The capsular bag was re-inflated using DisCoVisc and an [id number] 21.5 Implant was inse rted with the shooter. The irrigation-aspiration handpiece was used to remove all residual DisCoVisc . The eye was refilled with balanced salt solution and the wound checked and found to be watertight. Topical Maxitrol drops were given. [id number]/[facility] #: [id number]
== END 2019-03-28 10:56 | disposition home or self-care (01) ==
LOC: OREAST 07:56
PROVIDERS: ATTEND Specialist
DX: H25.812 Combined forms of age-related cataract, left eye (principal); I10 Essential (primary) hypertension; E03.9 Hypothyroidism, unspecified; K21.9 Gastro-esophageal reflux disease without esophagitis; F17.210 Nicotine dependence, cigarettes, uncomplicated; J45.909 Unspecified asthma, uncomplicated; M19.90 Unspecified osteoarthritis, unspecified site; F41.8 Other specified anxiety disorders; Z85.3 Personal history of malignant neoplasm of breast
CPT/HCPCS: A9270-GY; J2250; J3010; V2632

== ENCOUNTER 2020-10-01 10:58 | Inpatient (IN) ==
[2020-10-01] MEDS ORDERED: Magnesium Hydroxide LIQ 30 ML UDC PO PRN (15:36)
[2020-10-01] MEDS: oxyCODONE SR 20 mg TAB PO SCH (16:31)
[2020-10-01] MEDS: Mometasone/Formoter 200/5 MDI INH SCH (22:06)
[2020-10-01] MEDS: Aspirin EC 325 mg TAB.EC PO SCH (22:15)
[2020-10-01] MEDS: Nortriptyline 25 mg TAB PO SCH (22:16)
[2020-10-02] MEDS: oxyCODONE SR 20 mg TAB PO SCH ×3 (00:06→16:41)
[2020-10-02] MEDS: Mometasone/Formoter 200/5 MDI INH SCH ×2 (07:35→21:02)
[2020-10-02] MEDS: Potassium Chlor 20 meq TAB.ER PO SCH (08:48)
[2020-10-02] MEDS: CMCS: Anastrozole 1 mg TAB (NF) PO SCH (08:48)
[2020-10-02] MEDS: Cholecalciferol (VIT D3) 1,000 unit TAB PO SCH (08:48)
[2020-10-02] MEDS: Aspirin EC 325 mg TAB.EC PO SCH (21:07)
[2020-10-02] MEDS: Nortriptyline 25 mg TAB PO SCH (21:08)
[2020-10-03] MEDS: oxyCODONE SR 20 mg TAB PO SCH ×3 (00:14→17:31)
[2020-10-03 05:57] LABS: ABS Basophils 0.1 10^3/ul (0-0.2); ABS Eosinophils 0.6 10^3/ul (0-0.6); ABS Lymphocytes 1.5 10^3/ul (1.0-4.8); ABS Monocytes 1.1 10^3/ul (0-0.8); ABS Neutrophils 6.2 10^3/ul (1.5-7.7); Eosinophil % 6.5 %; Hematocrit 24 % (35-47); Hemoglobin 8.2 g/dL (12.0-16.0); Lymphocyte % 15.9 %; Mean Corpuscular HGB Conc 34 g/dL (31-36); Mean Corpuscular Hemoglobin 27 pg (27-31); Mean Corpuscular Volume 79 fL (80-97); Mean Platelet Volume 7.7 fL (7.4-10.4); Platelet Count 611 10^3/uL (150-450); Red Blood Count 3.04 10^6 /uL (3.70-4.87); Red Cell Distribution Width 16 % (10-15); White Blood Count 9.4 10^3/uL (3.5-10.8)
[2020-10-03 06:09] LABS: Albumin 2.9 g/dL (3.2-5.2); Calcium 8.5 mg/dL (8.6-10.3); Potassium 3.5 mmol/L (3.5-5.0); Total Bilirubin 0.3 mg/dL (0.2-1.0)
[2020-10-03 06:15] LABS: Albumin/Globulin Ratio 0.9 (1-3); EGFR African American 108.8 (>60); EGFR Non-African American 89.9 (>60); Globulin 3.3 g/dL (2-4); Total Protein 6.2 g/dL (6.4-8.9)
[2020-10-03] MEDS: Mometasone/Formoter 200/5 MDI INH SCH ×2 (07:01→20:15)
[2020-10-03] MEDS: Potassium Chlor 20 meq TAB.ER PO SCH (08:35)
[2020-10-03] MEDS: Cholecalciferol (VIT D3) 1,000 unit TAB PO SCH (08:36)
[2020-10-03] MEDS: CMCS: Anastrozole 1 mg TAB (NF) PO SCH (08:37)
[2020-10-03] MEDS: Aspirin EC 325 mg TAB.EC PO SCH (21:50)
[2020-10-03] MEDS: Nortriptyline 25 mg TAB PO SCH (21:50)
[2020-10-04] MEDS: oxyCODONE SR 20 mg TAB PO SCH ×4 (00:07→23:53)
[2020-10-04 05:46] LABS: ABS Basophils 0.1 10^3/ul (0-0.2); ABS Eosinophils 0.5 10^3/ul (0-0.6); ABS Lymphocytes 1.5 10^3/ul (1.0-4.8); ABS Monocytes 0.9 10^3/ul (0-0.8); ABS Neutrophils 6.2 10^3/ul (1.5-7.7); Eosinophil % 5.9 %; Hematocrit 24 % (35-47); Hemoglobin 8.1 g/dL (12.0-16.0); Lymphocyte % 16.4 %; Mean Corpuscular HGB Conc 34 g/dL (31-36); Mean Corpuscular Hemoglobin 27 pg (27-31); Mean Corpuscular Volume 78 fL (80-97); Mean Platelet Volume 7.6 fL (7.4-10.4); Platelet Count 664 10^3/uL (150-450); Red Blood Count 3.05 10^6 /uL (3.70-4.87); Red Cell Distribution Width 16 % (10-15); White Blood Count 9.2 10^3/uL (3.5-10.8)
[2020-10-04 06:02] LABS: Calcium 8.4 mg/dL (8.6-10.3); EGFR African American 103.3 (>60); EGFR Non-African American 85.4 (>60); Potassium 3.9 mmol/L (3.5-5.0)
[2020-10-04] MEDS: Mometasone/Formoter 200/5 MDI INH SCH ×2 (07:58→21:55)
[2020-10-04] MEDS: CMCS: Anastrozole 1 mg TAB (NF) PO SCH (10:14)
[2020-10-04] MEDS: Cholecalciferol (VIT D3) 1,000 unit TAB PO SCH (10:15)
[2020-10-04] MEDS: Potassium Chlor 20 meq TAB.ER PO SCH (10:16)
[2020-10-04] MEDS: Aspirin EC 325 mg TAB.EC PO SCH (21:48)
[2020-10-04] MEDS: Nortriptyline 25 mg TAB PO SCH (21:52)
[2020-10-05] MEDS: Mometasone/Formoter 200/5 MDI INH SCH ×2 (07:17→21:23)
[2020-10-05] MEDS: Potassium Chlor 20 meq TAB.ER PO SCH (08:41)
[2020-10-05] MEDS: Cholecalciferol (VIT D3) 1,000 unit TAB PO SCH (08:41)
[2020-10-05] MEDS: CMCS: Anastrozole 1 mg TAB (NF) PO SCH (08:42)
[2020-10-05] MEDS: oxyCODONE SR 20 mg TAB PO SCH ×2 (08:43→17:54)
[2020-10-05] MEDS: Senna TAB 8.6 mg TAB PO PRN ×2 (08:47→21:16)
[2020-10-05] MEDS: Nortriptyline 25 mg TAB PO SCH (21:16)
[2020-10-05] MEDS: Aspirin EC 325 mg TAB.EC PO SCH (21:16)
[2020-10-06] MEDS: oxyCODONE SR 20 mg TAB PO SCH ×3 (03:16→16:15)
[2020-10-06] MEDS: Mometasone/Formoter 200/5 MDI INH SCH ×2 (07:46→21:26)
[2020-10-06] MEDS: Cholecalciferol (VIT D3) 1,000 unit TAB PO SCH (08:11)
[2020-10-06] MEDS: Potassium Chlor 20 meq TAB.ER PO SCH (08:11)
[2020-10-06] MEDS: CMCS: Anastrozole 1 mg TAB (NF) PO SCH (08:17)
[2020-10-06] MEDS: Nortriptyline 25 mg TAB PO SCH (21:21)
[2020-10-06] MEDS: Aspirin EC 325 mg TAB.EC PO SCH (21:23)
[2020-10-07] MEDS: oxyCODONE SR 20 mg TAB PO SCH ×4 (00:06→23:49)
[2020-10-07] MEDS: Cholecalciferol (VIT D3) 1,000 unit TAB PO SCH (08:10)
[2020-10-07] MEDS: Potassium Chlor 20 meq TAB.ER PO SCH (08:10)
[2020-10-07] MEDS: CMCS: Anastrozole 1 mg TAB (NF) PO SCH (08:11)
[2020-10-07] MEDS: Mometasone/Formoter 200/5 MDI INH SCH ×2 (08:12→21:19)
[2020-10-07] MEDS: Aspirin EC 325 mg TAB.EC PO SCH (21:17)
[2020-10-07] MEDS: Nortriptyline 25 mg TAB PO SCH (21:17)
[2020-10-08] MEDS: Cholecalciferol (VIT D3) 1,000 unit TAB PO SCH (09:29)
[2020-10-08] MEDS: Potassium Chlor 20 meq TAB.ER PO SCH (09:29)
[2020-10-08] MEDS: oxyCODONE SR 20 mg TAB PO SCH ×3 (09:30→23:43)
[2020-10-08] MEDS: Mometasone/Formoter 200/5 MDI INH SCH ×2 (09:32→21:21)
[2020-10-08] MEDS: CMCS: Anastrozole 1 mg TAB (NF) PO SCH (09:32)
[2020-10-08] MEDS: Aspirin EC 325 mg TAB.EC PO SCH (21:14)
[2020-10-08] MEDS: Nortriptyline 25 mg TAB PO SCH (21:14)
[2020-10-09] MEDS: Cholecalciferol (VIT D3) 1,000 unit TAB PO SCH (09:26)
[2020-10-09] MEDS: Potassium Chlor 20 meq TAB.ER PO SCH (09:26)
[2020-10-09] MEDS: oxyCODONE SR 20 mg TAB PO SCH ×3 (09:27→23:49)
[2020-10-09] MEDS: CMCS: Anastrozole 1 mg TAB (NF) PO SCH (09:31)
[2020-10-09] MEDS: Mometasone/Formoter 200/5 MDI INH SCH ×2 (09:32→20:37)
[2020-10-09] MEDS: Aspirin EC 325 mg TAB.EC PO SCH (20:36)
[2020-10-09] MEDS: Nortriptyline 25 mg TAB PO SCH (20:36)
[2020-10-10 08:24] LABS: ABS Basophils 0.1 10^3/ul (0-0.2); ABS Eosinophils 0.5 10^3/ul (0-0.6); ABS Monocytes 0.7 10^3/ul (0-0.8); ABS Neutrophils 6.2 10^3/ul (1.5-7.7); Eosinophil % 5.6 %; Hematocrit 27 % (35-47); Hemoglobin 9.1 g/dL (12.0-16.0); Lymphocyte % 20.9 %; Mean Corpuscular HGB Conc 33 g/dL (31-36); Mean Corpuscular Hemoglobin 27 pg (27-31); Mean Corpuscular Volume 79 fL (80-97); Mean Platelet Volume 7.7 fL (7.4-10.4); Nucleated Red Blood Cells % 0.1; Platelet Count 825 10^3/uL (150-450); Red Blood Count 3.44 10^6 /uL (3.70-4.87); Red Cell Distribution Width 16 % (10-15); White Blood Count 9.6 10^3/uL (3.5-10.8)
[2020-10-10 08:43] LABS: Albumin 3.4 g/dL (3.2-5.2); Albumin/Globulin Ratio 0.9 (1-3); Calcium 9.2 mg/dL (8.6-10.3); EGFR Non-African American 82.6 (>60); Globulin 3.9 g/dL (2-4); Potassium 3.6 mmol/L (3.5-5.0); Total Bilirubin 0.3 mg/dL (0.2-1.0); Total Protein 7.3 g/dL (6.4-8.9)
[2020-10-10] MEDS: oxyCODONE SR 20 mg TAB PO SCH (09:55)
[2020-10-10] MEDS: Potassium Chlor 20 meq TAB.ER PO SCH (09:55)
[2020-10-10] MEDS: CMCS: Anastrozole 1 mg TAB (NF) PO SCH (09:56)
[2020-10-10] MEDS: Cholecalciferol (VIT D3) 1,000 unit TAB PO SCH (09:56)
[2020-10-10] MEDS: Mometasone/Formoter 200/5 MDI INH SCH (09:58)
[2020-10-10 16:18] VITALS: BP 125/49
== END 2020-10-10 15:30 | DRG 860 ==
LOC: PMRU 14:30
PROVIDERS: ADMIT Physical Medicine & Rehabilitation; ATTEND Physical Medicine & Rehabilitation

== ENCOUNTER 2021-08-25 09:27 | Inpatient (IN) ==
[~2021-08-25 09:27] MED LIST changes: +Buffered Lidocaine 1% SYRIN 1 ml INTRADERM ONE; -Buffered Lidocaine 1% SYRIN* 1 ML/SYRINGE INTRADERM ONE; -Cyclopentolate 1% OPTH.SOL* 2 ML BTL ONE; +Dexamethasone IV 4 MG/ML VIAL 1 ml VIAL IV SLOW PU ONE; +Dexamethasone IV 4 MG/ML VIAL 1 ml VIAL ONE; +Famotidine IV 10 MG/ML 2 ml VIAL (20 mg) IV ONE; +Famotidine IV 10 MG/ML 2 ml VIAL (20 mg) ONE; -Ketorolac 0.5% OPHTH (NF) 0.5 % 5 ML BTL ONE; +Lactated Ringers 1000 ml BAG 1,000 ML IV SCH; -Lidocaine 1% MPF ** 5 ML VIAL ONE; +Lidocaine 2% PF 5 ML VIAL ONE; -Lidocaine 2% w/ EPI 1:200,000* 20 ML SDV VIAL ONE; +Midazolam 2 mg/2 ml VIAL 1 mg/ml 2 ml VIAL (2 mg) ONE; -Neomycin/Polymy/Dex OPTH.SUSP* MAXITROL 0.1% 5 ML ONE; +Ondansetron 4 mg VIAL 2 MG/ML 2 ml VIAL ONE; -Phenylephrine OPHTH SOL 2.5%* 2 ML ONE; -Povidone Iodine 5% OPTH* 30 ML BTL ONE; -Proparacaine 0.5% OPHTH.SOL* 15 ML BTL ONE; +Propofol 10 MG/ML 20 ML BTL ONE; -acetaZOLAMIDE TAB* 250 MG ONE; +ceFAZolin 2 GM in NS PREMIX 2 GM/100 ML BAG IVPB ONE; +fentaNYL 100 mcg/2 ml 50 MCG/ML VIAL ONE
[2021-08-25] MEDS ORDERED: Naloxone 0.4 mg VIAL 0.4 mg/ml 1 ml VIAL IV PRN (10:15)
[2021-08-25] MEDS ORDERED: Prochlorperazine 5 mg/ml 2 ml VIAL (10 mg) IV PRN (10:15)
[2021-08-25] MEDS ORDERED: HYDROcodone/ACETAMIN 5/325 mg TAB PO PRN (10:15)
[2021-08-25] MEDS ORDERED: Bupivacaine 0.5% 50 ML MDV VIAL ONE (10:25)
[2021-08-25] MEDS ORDERED: Lidocaine 2% PF 10 ML AMP ONE (10:25)
[2021-08-25] MEDS ORDERED: HYDROmorphone 0.5 MG/0.5 ML SYRINGE ONE (11:31)
[2021-08-25] MEDS ORDERED: Ketamine HCL 50 mg/ml 10 ml VIAL (500 MG) ONE (11:31)
[2021-08-25] MEDS ORDERED: Magnesium Hydroxide LIQ 30 ML UDC PO PRN (12:15)
[2021-08-25] MEDS ORDERED: diPHENhydraMINE IV 50 MG/ML 1 ml VIAL (BENADRYL) IV PRN (12:15)
[2021-08-25] MEDS ORDERED: Ondansetron ODT 4 mg TAB 4 MG TAB PO PRN (12:15)
[2021-08-25] MEDS ORDERED: Lactulose 30 ml UDC PO PRN (12:15)
[2021-08-25] MEDS ORDERED: diPHENhydraMINE 25 mg TAB PO PRN (12:15)
[2021-08-25] MEDS ORDERED: Ondansetron 4 mg VIAL 2 MG/ML 2 ml VIAL IV PRN (12:15)
[2021-08-25] MEDS ORDERED: Albuterol HFA INHALER 8 gm MDI INH PRN (12:25)
[2021-08-25] MEDS ORDERED: fentaNYL 100 mcg/2 ml 50 MCG/ML VIAL ONE (12:27)
[2021-08-25] MEDS: fentaNYL 100 mcg/2 ml 50 MCG/ML VIAL IV PRN ×2 (12:31→12:46)
[2021-08-25] MEDS: oxyCODONE/Acetamin 5/325 mg TAB PO PRN ×2 (12:37→12:38)
[2021-08-25] MEDS ORDERED: oxyCODONE/Acetamin 5/325 mg TAB ONE (12:37)
[2021-08-25] MEDS ORDERED: Lactated Ringers 1000 ml BAG 1,000 ML IV SCH (13:00)
[2021-08-25] MEDS ORDERED: Vancomycin per Pharmacy 1 EA NOTE FOLLOW UP PRN (14:52)
[2021-08-25] MEDS ORDERED: Vancomycin 1,250 MG in NS 0.9% 250 ml 250 ML IVPB ONE (15:00)
[2021-08-25] MEDS ORDERED: cefTRIAXone 1 gm/50 mL D5W 1 GM/50 ML BAG IV SCH (16:00)
[2021-08-25] MEDS: Cholecalciferol (VIT D3) 1,000 unit TAB PO SCH (21:22)
[2021-08-25] MEDS: Aspirin EC 325 mg TAB.EC PO SCH (21:22)
[2021-08-25] MEDS: Potassium Chlor 20 meq TAB.ER PO SCH (21:22)
[2021-08-25] MEDS: Magnesium Hydroxide LIQ 30 ML UDC PO SCH (21:26)
[2021-08-26] MEDS: Vancomycin 1,250 MG in NS 0.9% 250 ml 250 ML IVPB SCH ×2 (02:01→14:54)
[2021-08-26 07:34] LABS: Hematocrit 29 % (35-47); Hemoglobin 9.9 g/dL (12.0-16.0); Mean Platelet Volume 7.7 fL (7.4-10.4); Platelet Count 407 10^3/uL (150-450)
[2021-08-26 07:43] LABS: Calcium 8.8 mg/dL (8.6-10.3); Potassium 4.2 mmol/L (3.5-5.0); eGFR CKD-EPI 98.2 (>60)
[2021-08-26] MEDS: Vitamin THERAPEUTIC TAB PO SCH (08:14)
[2021-08-26] MEDS: Magnesium Hydroxide LIQ 30 ML UDC PO SCH ×2 (08:33→20:49)
[2021-08-26] MEDS ORDERED: oxyCODONE SR 15 mg TAB PO PRN (13:56)
[2021-08-26] MEDS: oxyCODONE SR 15 mg TAB PO PRN ×2 (14:43→22:57)
[2021-08-26] MEDS: Potassium Chlor 20 meq TAB.ER PO SCH (20:16)
[2021-08-26] MEDS: Aspirin EC 325 mg TAB.EC PO SCH (20:16)
[2021-08-26] MEDS: Cholecalciferol (VIT D3) 1,000 unit TAB PO SCH (20:17)
[2021-08-27] MEDS: Vancomycin 1,250 MG in NS 0.9% 250 ml 250 ML IVPB SCH ×2 (01:34→15:37)
[2021-08-27 06:24] LABS: Hematocrit 31 % (35-47); Hemoglobin 10.7 g/dL (12.0-16.0); Mean Platelet Volume 7.6 fL (7.4-10.4); Platelet Count 434 10^3/uL (150-450)
[2021-08-27] MEDS: Vitamin THERAPEUTIC TAB PO SCH (09:20)
[2021-08-27] MEDS: Magnesium Hydroxide LIQ 30 ML UDC PO SCH ×2 (09:25→22:52)
[2021-08-27] MEDS: oxyCODONE SR 15 mg TAB PO PRN ×2 (09:54→19:31)
[2021-08-27 12:26] LABS: Osmolality Serum 266 mOsm/kg (275-295)
[2021-08-27] MEDS ORDERED: Vancomycin Trough Check NOTE FOLLOW UP ONE (13:30)
[2021-08-27 14:23] LABS: Vancomycin Trough 16.9 mcg/mL
[2021-08-27 14:34] LABS: Urine Osmo 145 mOsm/kg (150-1150)
[2021-08-27] MEDS: Aspirin EC 325 mg TAB.EC PO SCH (20:41)
[2021-08-27] MEDS: Cholecalciferol (VIT D3) 1,000 unit TAB PO SCH (20:42)
[2021-08-27] MEDS: Potassium Chlor 20 meq TAB.ER PO SCH (20:42)
[2021-08-28] MEDS: Vancomycin 1,250 MG in NS 0.9% 250 ml 250 ML IVPB SCH ×2 (03:09→14:30)
[2021-08-28] MEDS: oxyCODONE SR 15 mg TAB PO PRN ×2 (05:20→14:28)
[2021-08-28 05:53] LABS: Hematocrit 32 % (35-47); Hemoglobin 10.9 g/dL (12.0-16.0); Mean Platelet Volume 7.5 fL (7.4-10.4); Platelet Count 430 10^3/uL (150-450)
[2021-08-28 06:11] LABS: Calcium 8.8 mg/dL (8.6-10.3); Potassium 4.6 mmol/L (3.5-5.0); eGFR CKD-EPI 96.7 (>60)
[2021-08-28] MEDS: Vitamin THERAPEUTIC TAB PO SCH (11:02)
[2021-08-28] MEDS: Magnesium Hydroxide LIQ 30 ML UDC PO SCH (11:05)
[2021-08-28 11:06] VITALS: BP 152/60
[2021-08-29] MEDS ORDERED: Vancomycin Trough Check NOTE FOLLOW UP ONE (13:30)
== END 2021-08-28 18:00 | disposition home or self-care (01) | DRG 313 ==
LOC: OR 09:27 → SSU 13:56
PROVIDERS: ADMIT Orthopaedic Surgery; ATTEND Orthopaedic Surgery